=== PATIENT | male | born 1945 | race Caucasian/White ===

== ENCOUNTER 2017-10-08 14:49 | Inpatient (IN) | payer MEDICARE ==
[~2017-10-08] VITALS: Ht 165.1 cm; Wt 77.3 kg
[~2017-10-08 14:49] MED LIST: BACTRIM DS TABL1 TAB PO; FLAGYL500 MG PO; GLUCOPHAGE500 MG PO; HYDROCODONE-APA1 TAB PO; LOTREL 10/20 CA1 CAP PO
[2017-10-08 16:41] VITALS: BP 170/72
[2017-10-08 17:20] LABS: HEMATOCRIT 30.8 % (42.0-54.0); MCH 29.4 pg (26.0-34.0); MCHC 32.5 g/dL (31.0-37.0); MCV 90.6 fL (80.0-100.0); MEAN PLATELET VOLUME 10.1 fL (7.4-10.4); RDW 14.7 % (11.5-14.5)
[2017-10-08 17:22] LABS: PLATELET COUNT 192 10x3/uL (130-400)
[2017-10-08 17:36] LABS: ALBUMIN 2.8 g/dL (3.4-5.0); BILIRUBIN - TOTAL 0.28 mg/dL (0.2-1.3); CALCIUM 7.9 mg/dL (8.5-10.1); CARBON DIOXIDE 24.2 mmol/L (21.0-32.0); CREATININE - SERUM 1.7 mg/dL (0.6-1.3); MAGNESIUM - SERUM 2.2 mg/dL (1.8-2.4); POTASSIUM - SERUM 5.2 mmol/L (3.5-5.1)
[2017-10-08 18:00] LABS: LYMPHOCYTES 20 % (15-50); MONOCYTES 3 % (2-11); NEUTROPHILS 75 % (40-80)
[2017-10-08 18:01] LABS: PLATELET ESTIMATE NORMAL
[2017-10-08 19:51] VITALS: BP 170/72; Ht 165.1 cm; Wt 77.3 kg
[2017-10-08 20:00] VITALS: BP 133/65
[2017-10-09 03:38] LABS: APPEARANCE CLEAR (CLEAR); BILIRUBIN NEGATIVE (NEGATIVE); COLOR YELLOW (YELLOW); GLUCOSE NEGATIVE (NEGATIVE); KETONE NEGATIVE (NEGATIVE); NITRITE NEGATIVE (NEGATIVE); PROTEIN 2+ mg/dL (NEGATIVE); SPECIFIC GRAVITY 1.015 (1.005-1.020); UROBILINOGEN NORMAL (NORMAL)
[2017-10-09 03:39] LABS: WHITE CELLS - URINE NSEEN /hpf (0-5)
[2017-10-09 04:00] VITALS: BP 161/69
[2017-10-09 05:48] LABS: BASOPHILS 0.3 % (0-2); EOSINOPHILS 0.5 % (0-7); HEMOGLOBIN 9.4 g/dL (13.5-17.5); LYMPHOCYTES 26.5 % (15-50); MCH 29.3 pg (26.0-34.0); MCHC 32.4 g/dL (31.0-37.0); MCV 90.3 fL (80.0-100.0); MEAN PLATELET VOLUME 9.5 fL (7.4-10.4); MONOCYTES 18.2 % (2-11); NEUTROPHILS 54.5 % (40-80); PLATELET COUNT 168 10x3/uL (130-400); RBC 3.21 10x6/uL (4.20-6.10); RDW 14.9 % (11.5-14.5); WBC 3.7 10x3/uL (4.8-10.8)
[2017-10-09 06:18] LABS: ALBUMIN 2.4 g/dL (3.4-5.0); ANION GAP 12.8 mmol/L (8-16); BILIRUBIN - TOTAL 0.3 mg/dL (0.2-1.3); CALCIUM 7.6 mg/dL (8.5-10.1); CARBON DIOXIDE 24.6 mmol/L (21.0-32.0); CREATININE - SERUM 1.5 mg/dL (0.6-1.3); POTASSIUM - SERUM 4.4 mmol/L (3.5-5.1); PROTEIN - SERUM 5.7 g/dL (6.4-8.2)
[2017-10-09 07:59] VITALS: BP 154/66
[2017-10-09 12:34] VITALS: BP 163/63
[2017-10-09 15:45] VITALS: BP 157/57
[2017-10-09 20:00] VITALS: BP 164/59
[2017-10-10] VITALS: BP 165/72
[2017-10-10 04:00] VITALS: BP 178/72
[2017-10-10 04:43] LABS: BASOPHILS 0.2 % (0-2); EOSINOPHILS 0.5 % (0-7); HEMATOCRIT 28.8 % (42.0-54.0); HEMOGLOBIN 9.3 g/dL (13.5-17.5); IMMATURE GRANULOCYTES 0.4 % (0-5); LYMPHOCYTES 18.2 % (15-50); MCH 29.2 pg (26.0-34.0); MCHC 32.3 g/dL (31.0-37.0); MCV 90.3 fL (80.0-100.0); MEAN PLATELET VOLUME 9.5 fL (7.4-10.4); MONOCYTES 13.3 % (2-11); NEUTROPHILS 67.4 % (40-80); PLATELET COUNT 158 10x3/uL (130-400); RBC 3.19 10x6/uL (4.20-6.10); RDW 14.7 % (11.5-14.5)
[2017-10-10 04:45] LABS: WBC 5.6 10x3/uL (4.8-10.8)
[2017-10-10 04:57] LABS: ALBUMIN 2.2 g/dL (3.4-5.0); BILIRUBIN - TOTAL 0.3 mg/dL (0.2-1.3); CALCIUM 7.5 mg/dL (8.5-10.1); CARBON DIOXIDE 24.3 mmol/L (21.0-32.0); POTASSIUM - SERUM 4.3 mmol/L (3.5-5.1); PROTEIN - SERUM 5.6 g/dL (6.4-8.2)
[2017-10-10 05:00] LABS: CREATININE - SERUM 1.1 mg/dL (0.6-1.3)
[2017-10-10 07:03] VITALS: BP 167/68
[2017-10-10 11:10] VITALS: BP 160/64
[2017-10-10 15:07] VITALS: BP 167/63
[2017-10-10 23:37] VITALS: BP 174/67
[2017-10-11 04:00] VITALS: BP 180/74
[2017-10-11 05:32] LABS: BASOPHILS 0.1 % (0-2); EOSINOPHILS 0.9 % (0-7); HEMATOCRIT 30.3 % (42.0-54.0); HEMOGLOBIN 9.6 g/dL (13.5-17.5); IMMATURE GRANULOCYTES 0.3 % (0-5); LYMPHOCYTES 14.1 % (15-50); MCH 28.7 pg (26.0-34.0); MCHC 31.7 g/dL (31.0-37.0); MCV 90.7 fL (80.0-100.0); MEAN PLATELET VOLUME 10.1 fL (7.4-10.4); MONOCYTES 12.8 % (2-11); NEUTROPHILS 71.8 % (40-80); PLATELET COUNT 186 10x3/uL (130-400); RBC 3.34 10x6/uL (4.20-6.10); RDW 14.8 % (11.5-14.5)
[2017-10-11 05:56] LABS: ALBUMIN 2.3 g/dL (3.4-5.0); ANION GAP 13.4 mmol/L (8-16); BILIRUBIN - TOTAL 0.3 mg/dL (0.2-1.3); CALCIUM 7.7 mg/dL (8.5-10.1); CREATININE - SERUM 1.1 mg/dL (0.6-1.3); POTASSIUM - SERUM 4.4 mmol/L (3.5-5.1); PROTEIN - SERUM 5.4 g/dL (6.4-8.2)
[2017-10-11 09:23] VITALS: BP 184/73
[2017-10-11 11:43] VITALS: BP 132/81
[2017-10-11] MEDS ORDERED: MUCINEX600 MG PO (11:49)
[2017-10-11] MEDS ORDERED: TESSALON PERLE100 MG PO (11:49)
[2017-10-11] MEDS ORDERED: VENTOLIN HFA18 GM INH (11:50)
[2017-10-11] MEDS ORDERED: ZITHROMAX TRI-500 MG PO (11:50)
[2017-10-11] MEDS ORDERED: OMNICEF300 MG PO (11:50)
[2017-10-11] MEDS ORDERED: TAMIFLU75 MG PO (11:50)
[2017-10-11 16:00] VITALS: BP 167/70
[2017-10-15 17:13] LABS: AEROBE ID Final report (())
== END 2017-10-11 16:13 | disposition home or self-care (01) | DRG 193 ==
LOC: D.SDCHOLD 14:49 → D.MS 14:49
PROVIDERS: Family Medicine
DX: J10.00 Influenza due to other identified influenza virus with unspecified type of pneumonia (principal); G93.41 Metabolic encephalopathy; N17.9 Acute kidney failure, unspecified; J90 Pleural effusion, not elsewhere classified; K21.9 Gastro-esophageal reflux disease without esophagitis; E78.5 Hyperlipidemia, unspecified; M10.9 Gout, unspecified; E11.22 Type 2 diabetes mellitus with diabetic chronic kidney disease; I12.9 Hypertensive chronic kidney disease with stage 1 through stage 4 chronic kidney disease, or unspecified chronic kidney disease; N18.9 Chronic kidney disease, unspecified; E11.65 Type 2 diabetes mellitus with hyperglycemia; E86.0 Dehydration; E87.5 Hyperkalemia

== ENCOUNTER 2019-03-24 08:25 | Inpatient (IN) | payer MEDICARE ==
[~2019-03-24] VITALS: Ht 165.1 cm; Wt 86.2 kg
[~2019-03-24 08:25] MED LIST changes: +CARDURA2 MG PO; +DOXAZOSIN MESYLATE; +FLOMAX0.4 MG PO; +LIPITOR10 MG PO; +LISINOPRIL10 MG PO; +MIRALAX17 GM PO; +MUCINEX600 MG PO; +NORVASC10 MG PO; +OCUVITE TABLET1 TA1 PO; +OMEPRAZOLE40 MG PO; +OMNICEF300 MG PO; +TAMIFLU75 MG PO; +TESSALON PERLE100 MG PO; +TOUJEO SOL300 UNIT/1 SQ; +VENTOLIN HFA18 GM INH; +XALATAN 0.0052.5 ML EACH EYE; +ZITHROMAX TRI-500 MG PO; +ZYLOPRIM300 MG PO
--- NOTE | 2019-03-24 08:25 | NUR ---
TRAUMA BAND [id number]
[2019-03-24] MEDS ORDERED: NOVOLIN 70/30 110 ML SC ×2 (08:31)
[2019-03-24] MEDS ORDERED: BAYER CHEWABLE81 MG PO (08:32)
--- NOTE | 2019-03-24 08:54 | NUR ---
PATIENT TO RADIOLOGY AT THIS TIME.
[2019-03-24 08:58] LABS: BASOPHILS 0.3 % (0-2); EOSINOPHILS 0.2 % (0-7); HEMATOCRIT 30.2 % (42.0-54.0); HEMOGLOBIN 10.1 g/dL (13.5-17.5); IMMATURE GRANULOCYTES 0.3 % (0-5); LYMPHOCYTES 7.5 % (15-50); MCH 30.1 pg (26.0-34.0); MCHC 33.4 g/dL (31.0-37.0); MCV 89.9 fL (80.0-100.0); MEAN PLATELET VOLUME 9.6 fL (7.4-10.4); MONOCYTES 6.9 % (2-11); NEUTROPHILS 84.8 % (40-80); PLATELET COUNT 269 10x3/uL (130-400); RBC 3.36 10x6/uL (4.20-6.10); RDW 15.1 % (11.5-14.5); WBC 12.6 10x3/uL (4.8-10.8)
[2019-03-24 09:14] LABS: APPEARANCE CLEAR (CLEAR); COLOR YELLOW (YELLOW); NITRITE NEGATIVE (NEGATIVE)
[2019-03-24 09:15] LABS: BACTERIA FEW /hpf (NONE SEEN); BILIRUBIN NEGATIVE (NEGATIVE); EPITHELIAL CELLS RARE /hpf (0-5); GLUCOSE 50 mg/dL (NEGATIVE); KETONE NEGATIVE (NEGATIVE); MUCUS <1+ /lpf (NONE SEEN); PROTEIN 3+ mg/dL (NEGATIVE); RED CELLS - URINE 0-5 /hpf (0-5); UROBILINOGEN NORMAL (NORMAL)
[2019-03-24 09:34] LABS: BILIRUBIN - TOTAL 0.52 mg/dL (0.2-1.3); CALCIUM 8.5 mg/dL (8.5-10.1); CARBON DIOXIDE 23.6 mmol/L (21.0-32.0); CREATININE - SERUM 1.9 mg/dL (0.6-1.3); POTASSIUM - SERUM 5.6 mmol/L (3.5-5.1); PROTEIN - SERUM 6.9 g/dL (6.4-8.2)
[2019-03-24 09:44] VITALS: BP 182/87
--- NOTE | 2019-03-24 11:00 | NUR ---
ATTEMPTED ORTHO STATIC VITAL SIGNS AT THIS TIME. WHEN ATTEMPTING TO STAND, PT UNABLE TO DO SO D/T WEAKNESS. PT HELPED BACK TO BED AND LEFT IN LYING POSITION. WILL CONT TO MONITOR FOR CHANGES.
[2019-03-24 11:01] VITALS: BP 160/75
--- NOTE | 2019-03-24 11:30 | NUR ---
STAPLE X 2 TO HEAD LACERATION PER DIANA MATHEW.
[2019-03-24 12:48] VITALS: BP 180/100; BMI 31.6
[2019-03-24 16:59] VITALS: BP 171/77
--- NOTE | 2019-03-24 18:18 | NUR ---
RN KOLBY CAME AND ADVISED ME THAT SHE RECEIVED A CALL FROM VIDEO GAME ENGINEER TO PLACE STAT ORDERS ON PT FOR C-COLLAR AND CONSULT FOR PACE, CALLED ER AND HAND ER NURSE BRING HARD Da BORGES AND ASSISTED ALAN WITH PLACING COLLAR ON PT,. SPOKE TO SPOUSE AND ADVISED HER THESE WERE 'S ORDERS AND WE ARE TAKING PRECAUTIONARY MEASURES. CONTINUE WITH PLAN OF CARE
--- NOTE | 2019-03-24 19:45 | NUR ---
PT LYING IN BED RESTING, ALERT AND ORIENTED. C-COLLAR IN PLACE. IV LEFT AC INFUSING MVI @ 125. TELE IN PLACE, 85 SR. LEFT ANKLE BRUISING. AT BEDSIDE. DENIES PAIN. LACERATION TO BACK OF HEAD X2 RAMON. FALL PRECAUTIONS IN PLACE, BED ALARM ON. CL IN REACH, WILL CTM
--- NOTE | 2019-03-24 21:15 | NUR ---
FSBS 122, NO COVERAGE PER SS. DENIES NEEDS OR PAIN. WILL CTM
[2019-03-24 21:44] VITALS: BP 126/60
[2019-03-25 00:56] VITALS: BP 171/52
--- NOTE | 2019-03-25 01:30 | NUR ---
PT UNCOMFORTABLE LYING STILL ON BACK FOR SO LONG. ASSISTED PT X4 LOG ROLL TO LEFT SIDE WITH PILLOWS DOWN RIGHT SIDE TO KEEP PT STRAIGHT. C-COLLAR IN PLACE. DENIES PAIN. WILL CTM
[2019-03-25 05:00] VITALS: BP 154/62
[2019-03-25 05:58] LABS: BASOPHILS 0.2 % (0-2); EOSINOPHILS 0.2 % (0-7); HEMATOCRIT 27.1 % (42.0-54.0); HEMOGLOBIN 9.2 g/dL (13.5-17.5); IMMATURE GRANULOCYTES 0.3 % (0-5); LYMPHOCYTES 11.7 % (15-50); MCHC 33.9 g/dL (31.0-37.0); MCV 91.2 fL (80.0-100.0); MONOCYTES 12.8 % (2-11); NEUTROPHILS 74.8 % (40-80); PLATELET COUNT 229 10x3/uL (130-400); RBC 2.97 10x6/uL (4.20-6.10); RDW 15.4 % (11.5-14.5); WBC 13.2 10x3/uL (4.8-10.8)
[2019-03-25 06:29] LABS: ALBUMIN 2.3 g/dL (3.4-5.0); BILIRUBIN - TOTAL 0.46 mg/dL (0.2-1.3); CALCIUM 8.2 mg/dL (8.5-10.1); CREATININE - SERUM 1.7 mg/dL (0.6-1.3); PROTEIN - SERUM 5.7 g/dL (6.4-8.2)
[2019-03-25 06:31] LABS: ANION GAP 14.6 mmol/L (8-16); POTASSIUM - SERUM 4.6 mmol/L (3.5-5.1)
--- NOTE | 2019-03-25 09:00 | NUR ---
ALERT AND ORIENTED X4 WITH LIMITED ABILITY TO SPEAK WELSH WITH FAMILY PRESENT TO ASSIST. C-COLLAR INTACT AND DENIES ANY PAIN OR DISCOMFORT.S/L TO RT. A/C WITH TELEMETRY INTACT. FIBERGLASS SPLINT APPLIED TO LLE PER TELEVISION MAINTENANCE WORKER. ENCOURAGED TO USE CALL LIGHT FOR ASSIST.
[2019-03-25 09:22] VITALS: BP 166/87
[2019-03-25 09:29] VITALS: Ht 165.1 cm; Wt 86.2 kg
[2019-03-25 12:48] VITALS: BP 145/61
[2019-03-25 17:22] VITALS: BP 103/61
--- NOTE | 2019-03-25 19:37 | NUR ---
LYING IN BED WITH EYES OPEN AND TELEVISION ON, FAMILY AT BEDSIDE, IV TO RIGHT WRIST PATENT WITH MVI INFUSING PER ORDERS. ABLE TO VOICE ALL NEEDS. WILL NOTE ANY CHANGE.
[2019-03-25 20:00] VITALS: BP 161/62
--- NOTE | 2019-03-25 23:13 | NUR ---
REQUESTING TO TAKE COLLAR OFF, STATES HE HAS WENT TWO NIGHTS WITH NO REST DUE TO DISCOMFORT LEVEL OF COLLAR, NURSE ATTEMPTED TO EDUCATE PATIENT ON IMPORTANCE, HE STATES, HE DOESN'T WANT IT ON, CHAIN OF COMMAND BEING FOLLOWED.
[2019-03-26] VITALS: BP 152/61
--- NOTE | 2019-03-26 02:44 | NUR ---
COMPLAINS OF NOT BEING ABLE TO SLEEP WITH COLLAR ON, THIS NURSE EXPLAINED THE RISK OF INJURY TO SELF IF COLLAR DONNED, VERBALIZED UNDERSTANDING AND STATED HE WANTS TO SLEEP AND WILL BE FINE, WILL ATTEMPT TO REPLACE COLLAR AFTER HS.
--- NOTE | 2019-03-26 03:36 | NUR ---
I have reviewed this patient and I concur with the Shift Assessment completed by the Licensed Practical Nurse today this shift.
[2019-03-26 04:00] VITALS: BP 160/63
--- NOTE | 2019-03-26 06:41 | NUR ---
AGREED TO PUT ON COLLAR FOR START OF THIS SHIFT, STATED HE JUST DIDN'T WANT IT AT NIGHT SO HE CAN GET QUALITY HS. wILL NOTE ANY CHANGE.
[2019-03-26 06:55] LABS: BASOPHILS 0.3 % (0-2); EOSINOPHILS 3.3 % (0-7); HEMATOCRIT 26.4 % (42.0-54.0); HEMOGLOBIN 8.7 g/dL (13.5-17.5); IMMATURE GRANULOCYTES 0.2 % (0-5); LYMPHOCYTES 11.6 % (15-50); MCH 29.9 pg (26.0-34.0); MCV 90.7 fL (80.0-100.0); MEAN PLATELET VOLUME 10.4 fL (7.4-10.4); MONOCYTES 12.4 % (2-11); NEUTROPHILS 72.2 % (40-80); PLATELET COUNT 241 10x3/uL (130-400); RBC 2.91 10x6/uL (4.20-6.10); WBC 10.9 10x3/uL (4.8-10.8)
[2019-03-26 07:26] LABS: ALBUMIN 2.1 g/dL (3.4-5.0); ANION GAP 13.1 mmol/L (8-16); BILIRUBIN - TOTAL 0.34 mg/dL (0.2-1.3); CALCIUM 7.9 mg/dL (8.5-10.1); CARBON DIOXIDE 21.3 mmol/L (21.0-32.0); CREATININE - SERUM 1.8 mg/dL (0.6-1.3); POTASSIUM - SERUM 4.4 mmol/L (3.5-5.1); PROTEIN - SERUM 5.8 g/dL (6.4-8.2)
[2019-03-26 08:58] VITALS: BP 177/76
--- NOTE | 2019-03-26 09:00 | NUR ---
ALERT AND ORIENTED WITH CERVICAL COLLAR INTACT. SPLINT NOTED TO LLE WITH CAPILLARY REFILL <3 SEC. TYLENOL GIVEN FOR GENERALIZED DISCOMFORT AND EFFECTIVE. LUNGS CTA AND HRRR. FAMILY PRESENT AND ENCOURAGED TO USE CALL LIGHT FOR ASSIST.
[2019-03-26 12:32] VITALS: BP 163/61
[2019-03-26 17:09] VITALS: BP 140/54
[2019-03-26 20:00] VITALS: BP 166/69
[2019-03-27] VITALS: BP 132/69
[2019-03-27 04:00] VITALS: BP 157/86
[2019-03-27 08:11] LABS: BASOPHILS 0.5 % (0-2); HEMATOCRIT 28.2 % (42.0-54.0); HEMOGLOBIN 9.4 g/dL (13.5-17.5); IMMATURE GRANULOCYTES 0.2 % (0-5); LYMPHOCYTES 10.4 % (15-50); MCH 29.9 pg (26.0-34.0); MCHC 33.3 g/dL (31.0-37.0); MCV 89.8 fL (80.0-100.0); MEAN PLATELET VOLUME 10.3 fL (7.4-10.4); MONOCYTES 9.2 % (2-11); NEUTROPHILS 74.7 % (40-80); PLATELET COUNT 242 10x3/uL (130-400); RBC 3.14 10x6/uL (4.20-6.10); RDW 14.8 % (11.5-14.5); WBC 9.1 10x3/uL (4.8-10.8)
[2019-03-27 08:33] LABS: ANION GAP 13.2 mmol/L (8-16); BILIRUBIN - TOTAL 0.39 mg/dL (0.2-1.3); CARBON DIOXIDE 22.2 mmol/L (21.0-32.0); CREATININE - SERUM 1.5 mg/dL (0.6-1.3); POTASSIUM - SERUM 4.4 mmol/L (3.5-5.1); PROTEIN - SERUM 5.8 g/dL (6.4-8.2)
--- NOTE | 2019-03-27 09:00 | NUR ---
ALERT AND ORIENTED X4 WITH C-COLLAR INTACT TO NECK WITH SPLINT TO LLE. PT NPO AFTER MIDNIGHT FOR REAIR OF RLE. TLENOL GIVEN FOR PAIN AND EFFECTIVE. TELEMETRY INTACT. S/L TO LT. HAND INTACT. ENCOURAGED TO USE CALL LIGHT FOR ASSIST. AND DISCUSSED RISK FOR REMOVING SPLINTS.
[2019-03-27 09:15] VITALS: BP 174/69
[2019-03-27 13:10] VITALS: BP 158/59
[2019-03-27 16:22] VITALS: BP 144/53
[2019-03-27 20:00] VITALS: BP 165/67
[2019-03-28] VITALS (12 sets, daily range): BP systolic 126–172; BP diastolic 55–74
[2019-03-28 04:54] LABS: BASOPHILS 0.2 % (0-2); EOSINOPHILS 4.8 % (0-7); HEMOGLOBIN 8.7 g/dL (13.5-17.5); IMMATURE GRANULOCYTES 0.3 % (0-5); LYMPHOCYTES 12.1 % (15-50); MCH 29.8 pg (26.0-34.0); MCHC 33.5 g/dL (31.0-37.0); MEAN PLATELET VOLUME 9.8 fL (7.4-10.4); MONOCYTES 11.5 % (2-11); NEUTROPHILS 71.1 % (40-80); PLATELET COUNT 252 10x3/uL (130-400); RBC 2.92 10x6/uL (4.20-6.10); RDW 14.6 % (11.5-14.5); WBC 8.8 10x3/uL (4.8-10.8)
[2019-03-28 05:12] LABS: ANION GAP 12.5 mmol/L (8-16); BILIRUBIN - TOTAL 0.3 mg/dL (0.2-1.3); CALCIUM 7.9 mg/dL (8.5-10.1); CARBON DIOXIDE 22.9 mmol/L (21.0-32.0); CREATININE - SERUM 1.5 mg/dL (0.6-1.3); POTASSIUM - SERUM 4.4 mmol/L (3.5-5.1); PROTEIN - SERUM 5.7 g/dL (6.4-8.2)
--- NOTE | 2019-03-28 07:00 | NUR ---
PATIENT RESTING IN BED. NPO FOR PROCEDURE LATER TODAY TO FRACTURED LEFT ANKLE. PATIENT DENIES ANY NEEDS AT THIS TIME. CL IN REACH
--- NOTE | 2019-03-28 13:00 | NUR ---
NUTRITION F/U PT CURRENTLY NPO FOR PROCEDURE. WILL MONITOR DIET ADVANCEMENT, PO INTAKE. RD FOLLOWING
--- NOTE | 2019-03-28 13:16 | NUR ---
PATIENT TAKEN TO OR FOR PROCEDURE
--- NOTE | 2019-03-28 16:36 | NUR ---
PATIENT RECIEVED FROM RECOVERY ROOM WITH SOFT CAST INTACT. PATIENT REPORTS PAIN WITH NORCO GIVEN. PULSES PRESENT WNL. CL IN REACH
--- NOTE | 2019-03-28 21:00 | NUR ---
FSBS 263 10 UNITS OF INSULIN GIVEN PER SS.
[2019-03-29 04:00] VITALS: BP 174/71
--- NOTE | 2019-03-29 04:21 | NUR ---
PT RESTING IN BED. EYES CLOSED. NO SIGNS OF DISTRESS. BREATHING EVEN AND UNLABORED. IV SITE LT WRIST DRESSING CLEAN DRY AND INTACT. NO SIGNS OF INFECTION. TELE MONITOR ON 72 SINUS. BOWEL SOUNDS ACTIVE. RT ANKLE DRESSING CLEAN DRY AND INTACT. WILL CONTINUE PLAN OF CARE. CALL LIGHT IN REACH. BED LOWERED AND LOCKED. AT BEDSIDE.
[2019-03-29 05:58] LABS: BASOPHILS 0.4 % (0-2); HEMATOCRIT 26.7 % (42.0-54.0); IMMATURE GRANULOCYTES 0.5 % (0-5); LYMPHOCYTES 9.7 % (15-50); MCH 30.6 pg (26.0-34.0); MCHC 33.7 g/dL (31.0-37.0); MCV 90.8 fL (80.0-100.0); MEAN PLATELET VOLUME 9.9 fL (7.4-10.4); MONOCYTES 10.5 % (2-11); NEUTROPHILS 75.9 % (40-80); PLATELET COUNT 283 10x3/uL (130-400); RBC 2.94 10x6/uL (4.20-6.10); RDW 14.6 % (11.5-14.5)
--- NOTE | 2019-03-29 06:20 | NUR ---
PT IV INFULTRATED. NEW IV SITE LT UPPER INNER ARM 22G. PT TOLERATED WELL. ATTEMPTS X3. WULL RESTART IV FLUIDS.
--- NOTE | 2019-03-29 06:21 | NUR ---
FSBS 111 NO INSULIN NEEDED AT THIS TIME. PER SS.
[2019-03-29 06:40] LABS: WBC 11.4 10x3/uL (4.8-10.8)
[2019-03-29 07:01] LABS: ALBUMIN 2.1 g/dL (3.4-5.0); BILIRUBIN - TOTAL 0.31 mg/dL (0.2-1.3); CALCIUM 7.7 mg/dL (8.5-10.1); CARBON DIOXIDE 23.1 mmol/L (21.0-32.0); CREATININE - SERUM 1.6 mg/dL (0.6-1.3); PROTEIN - SERUM 5.4 g/dL (6.4-8.2)
--- NOTE | 2019-03-29 07:25 | NUR ---
PT RESTING IN BED WITH SPOUSE AT BEDSIDE. NO ACUTE DISTRESS NOTED AT THIS TIME. DENIES PAIN AT THIS TIME. IV TO RIGHT UPPER ARM WITH MULTI VITAMIN @ 125ML/HR INFUSING VIA PUMP. SITE WITHOUT REDNESS OR EDEMA. DRESSING C/D/I TO RIGHT LOWER EXTREMITY. EXREMITY WARM TO TOUCH, ABLE TO MOVE TOES, POSITIVE FOR CAP REFILL. DENIES FURTHER NEEDS AT THIS TIME. CL WITHIN REACH. ENCOURAGED TO CALL WITH NEEDS. CONTINUE POC
[2019-03-29 07:52] LABS: POTASSIUM - SERUM 5.1 mmol/L (3.5-5.1)
[2019-03-29 08:36] VITALS: BP 159/63; BP 183/98
--- NOTE | 2019-03-29 09:45 | NUR ---
PT AT PATIENT BEDSIDE TO ASSIST TO EVALUATE AND ASSIST TO BEDSIDE CHAIR. PT JORDY WELL. CL WITHIN REACH.
--- NOTE | 2019-03-29 11:35 | NUR ---
PT RESTING IN BED WITH SPOUSE AT BEDSIDE. NO ACUTE DISTRESS NOTED AT THIS TIME. DENIES PAIN OR FURTHER NEEDS AT THIS TIME. CL WITHIN REACH. ENCOURAGED TO CALL WITH NEEDS.
--- NOTE | 2019-03-29 12:40 | MORECARE ---
CASE MANAGEMENT DISCHARGE SUMMARY PATIENT: LAURA LEVY UNIT: [id number] ADM DATE: 03/24/19 AGE: 73 : 45 SEX: M ROOM/BED: D.2210 AUTHOR: CADE HYDE PHYSICIAN: REFERRING PHYSICIAN: VERONICA ROCA MD DATE OF SERVICE: 03/29/19 Discharge Plan Patient Name: LAURA LEVY Facility: [facility]:[place] : 1945 Planned Disposition: Home with Home Health Anticipated Discharge Date: Discharge Date: Expected LOS: Initial Reviewer: [email or web address] Initial Review Date: 03/24/2019 Generated: 03/29/19 1:40 pm DCPIA - Discharge Planning Initial Assessment Updated by [email or web address]: Karmen Downs on 03/29/19 12:35 pm * Is the patient Alert and Oriented? Yes * How many steps to enter\exit or inside your home? * PCP NICO * Pharmacy [facility] * Preadmission Environment Home with Family * ADLs Independent * Equipment Bedside Commode Cane Rolling Walker Shower Chair * List name and contact numbers for known caregivers / representatives who currently or will assist patient after discharge: CARA (DAUGHTER) [phone] KATIANA LEVY () [phone] * Verbal permission to speak to the caregivers and representatives has been obtained from the patient. Yes * Community resources currently utilized None * Additional services required to return to the preadmission environment? Yes * Can the patient safely return to the preadmission environment? Yes * Has this patient been hospitalized within the prior 30 days at any hospital? No External Providers External Provider: [facility] Next Contact Date: Service Request Date: Service Type: Resolution: Reviewer: Comments: Patient Name: LAURA LEVY Page [id number] at 1240 All edits/amendments must be made on the electronic document DICTATION DATE: 03/29/19 1239 PIPE FITTER: YULISA 03/29/19 1239 RPT#: [id number] DC DATE: STATUS: ADM IN [facility] [address] [place] [address] END OF REPORT
--- NOTE | 2019-03-29 12:48 | MORECARE ---
CASE MANAGEMENT DISCHARGE SUMMARY PATIENT: LAURA LEVY UNIT: [id number] ADM DATE: 03/24/19 AGE: 73 : 45 SEX: M ROOM/BED: D.2210 AUTHOR: CADE HYDE PHYSICIAN: REFERRING PHYSICIAN: VERONICA ROCA MD DATE OF SERVICE: 03/29/19 Discharge Plan Patient Name: LAURA LEVY Facility: [facility]:[place] : 1945 Planned Disposition: Home with Home Health Anticipated Discharge Date: Discharge Date: Expected LOS: Initial Reviewer: [email or web address] Initial Review Date: 03/24/2019 Generated: 03/29/19 1:48 pm Comments DCP- Discharge Planning Updated by [email or web address]: Karmen Downs on 03/29/19 11:[address] Patient Name: LAURA LEVY Admission Status: ER Accout number: [id number] Admission Date: 03-24-2019 : 1945 Admission Diagnosis:DISPLACED BIMALLEOLAR FRACTURE OF LEFT LOWER LEG, INIT Attending: VERONICA ABREU Current LOS: 5 Anticipated DC Date: Planned Disposition: Home with Home Health Primary Insurance: [facility] MEDICARE SOLUTIONS Discharge Planning Comments: CM met with patient and to complete initial dc planning assessment. CM educated patient on the CM role and verbal consent given by patient to complete assessment. Patient lives at home with his , but is currently moving to [place] to live with his daughter. At discharge patient plans to move to [place] and feels this is a safe discharge. CM discussed availability of home health, rehab services, and medical equipment. He does NOT want rehab or skilled he wants home health to come to his daughters home. Her address is [address] [place] [id number]. He has a walker, shower chair, BSC, cane and I have ordered a wheelchair from [employer], I spoke with hernando. I will call his daughter to see if she had found any information about home [employer] companies in [place], she was suppose to be looking into this. IMM served and explained and MARGARETTE fro DME and HH signed. CM will continue to follow and will assist as needed with dc plans/needs. Dental Detail Representative: Karmen Downs DCPIA - Discharge Planning Initial Assessment Updated by [email or web address]: Karmen Downs on 03/29/19 12:35 pm * Is the patient Alert and Oriented? Yes * How many steps to enter\exit or inside your home? * PCP NICO * [facility] * Preadmission Environment Home with Family * ADLs Independent * Equipment Bedside Commode Cane Rolling Walker Shower Chair * List name and contact numbers for known caregivers / representatives who currently or will assist patient after discharge: CARA (DAUGHTER) [phone] KATIANA LEVY () [phone] * Verbal permission to speak to the caregivers and representatives has been obtained from the patient. Yes * Community resources currently utilized None * Additional services required to return to the preadmission environment? Yes * Can the patient safely return to the preadmission environment? Yes * Has this patient been hospitalized within the prior 30 days at any hospital? No Last DP export: 03/29/19 11:40 a Patient Name: LAURA LEVY Page [phone] at 1248 All edits/amendments must be made on the electronic document DICTATION DATE: 03/29/19 1248 CLAY MINE CUTTING MACHINE OPERATOR: YULISA 03/29/19 1248 RPT#: [id number] DC DATE: STATUS: ADM IN [facility] [address] [place] [address] END OF REPORT
[2019-03-29 12:56] VITALS: BP 169/71
--- NOTE | 2019-03-29 13:43 | MORECARE ---
CASE MANAGEMENT DISCHARGE SUMMARY PATIENT: LAURA LEVY UNIT: [id number] ADM DATE: 03/24/19 AGE: 73 : 45 SEX: M ROOM/BED: D.2210 AUTHOR: MARY ELLEN,DOC PHYSICIAN: REFERRING PHYSICIAN: VERONICA ROCA MD DATE OF SERVICE: 03/29/19 Discharge Plan Patient Name: LAURA LEVY Facility: [facility]:[place] : 1945 Planned Disposition: Home with Home Health Anticipated Discharge Date: Discharge Date: Expected LOS: Initial Reviewer: [email or web address] Initial Review Date: 03/24/2019 Generated: 03/29/19 2:43 pm Comments DCP- Discharge Planning Updated by [email or web address]: Karmen Downs on 03/29/19 12:[address] RECEIVED A CALL FROM HERNANDO WITH [facility] THEY ARE OUT OF NETWORK FOR THIS PATIENT, [facility] IS IN NETWORK SO I SENT THE ORDER AND REFERRAL TO [facility]. TRENT TO FOLLOW AND ASSIST WITH DC PLANNING DCP- Discharge Planning Updated by [id number]: Karmen Downs on 03/29/19 11:[address] Patient Name: LAURA LEVY Admission Status: ER Accout number: [id number] Admission Date: 03-24-2019 : 1945 Admission Diagnosis:DISPLACED BIMALLEOLAR FRACTURE OF LEFT LOWER LEG, INIT Attending: VERONICA ABREU Current LOS: 5 Anticipated DC Date: Planned Disposition: Home with Home Health Primary Insurance: [facility] MEDICARE SOLUTIONS Discharge Planning Comments: CM met with patient and to complete initial dc planning assessment. CM educated patient on the CM role and verbal consent given by patient to complete assessment. Patient lives at home with his , but is currently moving to [place] to live with his daughter. At discharge patient plans to move to [place] and feels this is a safe discharge. CM discussed availability of home health, rehab services, and medical equipment. He does NOT want rehab or skilled he wants home health to come to his daughters home. Her address is [address] [place] [address]. He has a walker, shower chair, BSC, cane and I have ordered a wheelchair from [facility], I spoke with hernando. I will call his daughter to see if she had found any information about home [facility] companies in [place], she was suppose to be looking into this. IMM served and explained and MARGARETTE fro [facility] and HH signed. CM will continue to follow and will assist as needed with dc plans/needs. Culvert Installer: Karmen Downs DCPIA - Discharge Planning Initial Assessment Updated by [email or web address]: Karmen Downs on 03/29/19 12:35 pm * Is the patient Alert and Oriented? Yes * How many steps to enter\exit or inside your home? * PCP [facility] * [facility] * Preadmission Environment Home with Family * ADLs Independent * Equipment Bedside Commode Cane Rolling Walker Shower Chair * List name and contact numbers for known caregivers / representatives who currently or will assist patient after discharge: CARA (DAUGHTER) [phone] KATIANA LEVY () [phone] * Verbal permission to speak to the caregivers and representatives has been obtained from the patient. Yes * Community resources currently utilized None * Additional services required to return to the preadmission environment? Yes * Can the patient safely return to the preadmission environment? Yes * Has this patient been hospitalized within the prior 30 days at any hospital? No External Providers External Provider: [facility] Next Contact Date: Service Request Date: Service Type: Resolution: Reviewer: Comments: Coverage Notice Reviewer: [email or web address] Elton Downs Notice Issued Date-Time: 03/29/2019 12:00 Notice Type: IM Discharge Notice Notice Delivered To: Patient Relationship to Patient: Spouse Patient Care Nursing Assistant Name: Delivery Method: HAND - Hand Delivered Annabelle Days: Prior Verbal Notification: Recipient Understood Notice: Yes Recipient Signature: Yes Med Rec Note Co-signed by Attending: Coverage Notice Comment: patient could not sign, did Reviewer: [email or web address] Elton Downs Notice Issued Date-Time: 03/29/2019 12:00 Notice Type: Patient Choice Letter Notice Delivered To: Patient Relationship to Patient: Patient Care Nursing Assistant Name: Delivery Method: - Annabelle Days: Prior Verbal Notification: Recipient Understood Notice: Recipient Signature: Med Rec Note Co-signed by Attending: Coverage Notice Comment: Last DP export: 03/29/19 11:48 a Patient Name: LAURA LEVY Page [phone] at 1343 All edits/amendments must be made on the electronic document DICTATION DATE: 03/29/191341 CONCEPTOR: YULISA 03/29/191341 RPT#: [id number] DC DATE: STATUS: ADM IN [facility] [address] [place] [address] END OF REPORT
--- NOTE | 2019-03-29 13:47 | NUR ---
PT RESTING QUIETLY IN BED WITH EYES CLOSED. NO ACUTE DISTRESS NOTED AT THIS TIME. CL WITHIN REACH. WILL CONTINUE TO MONITOR.
--- NOTE | 2019-03-29 14:07 | MORECARE ---
CASE MANAGEMENT DISCHARGE SUMMARY PATIENT: LAURA LEVY UNIT: [id number] ADM DATE: 03/24/19 AGE: 73 : 45 SEX: M ROOM/BED: D.2210 AUTHOR: CADE HYDE PHYSICIAN: REFERRING PHYSICIAN: VERONICA ROCA MD DATE OF SERVICE: 03/29/19 Discharge Plan Patient Name: LAURA LEVY Facility: [facility]:[place] : 1945 Planned Disposition: Home with Home Health Anticipated Discharge Date: Discharge Date: Expected LOS: Initial Reviewer: [email or web address] Initial Review Date: 03/24/2019 Generated: 03/29/19 3:06 pm Comments DCP- Discharge Planning Updated by [email or web address]: Karmen Downs on 03/29/19 1:[address] RECEIVED A CALL FROM PATIENT'S DAUGHTER AND THEY WANT HIM TO USE [facility], I CALLED THEM AND SPOKE WITH ISMAEL, SHE STATED THAT THEY ARE NOT IN NETWORK WITH [facility] IN [facility], I CALLED THE DAUGHTERS BACK AND THEY WERE GOING TO GET BACK WITH ME AND LET ME KNOW THEIR NEXT CHOICE. CM TO FOLLOW AND ASSIST WITH DC PLANNING DCP- Discharge Planning Updated by [email or web address]: Karmen Downs on 03/29/19 12:[address] RECEIVED A CALL FROM HERNANDO WITH [facility] THEY ARE OUT OF NETWORK FOR THIS PATIENT, [facility] IS IN NETWORK SO I SENT THE ORDER AND REFERRAL TO [facility]. CM TO FOLLOW AND ASSIST WITH DC PLANNING DCP- Discharge Planning Updated by [email or web address]: Karmen Downs on 03/29/19 11:[address] Patient Name: LAURA LEVY Admission Status: ER Accout number: [id number] Admission Date: 03-24-2019 : 1945 Admission Diagnosis:DISPLACED BIMALLEOLAR FRACTURE OF LEFT LOWER LEG, INIT Attending: VERONICA ABREU Current LOS: 5 Anticipated DC Date: Planned Disposition: Home with Home Health Primary Insurance: [facility] MEDICARE SOLUTIONS Discharge Planning Comments: CM met with patient and to complete initial dc planning assessment. CM educated patient on the CM role and verbal consent given by patient to complete assessment. Patient lives at home with his , but is currently moving to [place] to live with his daughter. At discharge patient plans to move to [place] and feels this is a safe discharge. CM discussed availability of home health, rehab services, and medical equipment. He does NOT want rehab or skilled he wants home health to come to his daughters home. Her address is [facility] [place] [address]. He has a walker, shower chair, BSC, cane and I have ordered a wheelchair from [employer], I spoke with hernando. I will call his daughter to see if she had found any information about home helath companies in [place], she was suppose to be looking into this. IMM served and explained and MARGARETTE kenney [place] and HH signed. CM will continue to follow and will assist as needed with dc plans/needs. Pst Specialist: Karmen Downs DCPIA - Discharge Planning Initial Assessment Updated by [email or web address]: Karmen Downs on 03/29/19 12:35 pm * Is the patient Alert and Oriented? Yes * How many steps to enter\exit or inside your home? * PCP NICO * [facility]acy [facility] * Preadmission Environment Home with Family * ADLs Independent * Equipment Bedside Commode Cane Rolling Walker Shower Chair * List name and contact numbers for known caregivers / representatives who currently or will assist patient after discharge: CARA (DAUGHTER) [phone] KATIANA LEVY () [phone] * Verbal permission to speak to the caregivers and representatives has been obtained from the patient. Yes * Community resources currently utilized None * Additional services required to return to the preadmission environment? Yes * Can the patient safely return to the preadmission environment? Yes * Has this patient been hospitalized within the prior 30 days at any hospital? No Coverage Notice Reviewer: [id number] Elton Downs Notice Issued Date-Time: 03/29/2019 12:00 Notice Type: IM Discharge Notice Notice Delivered To: Patient Relationship to Patient: Spouse Youth Accommodation Support Worker Name: Delivery Method: HAND - Hand Delivered Annabelle Days: Prior Verbal Notification: Recipient Understood Notice: Yes Recipient Signature: Yes Med Rec Note Co-signed by Attending: Coverage Notice Comment: patient could not sign, did Reviewer: [email or web address] Elton Downs Notice Issued Date-Time: 03/29/2019 12:00 Notice Type: Patient Choice Letter Notice Delivered To: Patient Relationship to Patient: Youth Accommodation Support Worker Name: Delivery Method: - Annabelle Days: Prior Verbal Notification: Recipient Understood Notice: Recipient Signature: Med Rec Note Co-signed by Attending: Coverage Notice Comment: Last DP export: 03/29/19 12:43 p Patient Name: LAURA LEVY Page [id number] at 1407 All edits/amendments must be made on the electronic document DICTATION DATE: 03/29/191405 GUIDANCE ADVISER: YULISA 03/29/19 1406 RPT#: [id number] DC DATE: STATUS: ADM IN [facility] [address] [place] [address] END OF REPORT
--- NOTE | 2019-03-29 14:52 | MORECARE ---
CASE MANAGEMENT DISCHARGE SUMMARY PATIENT: LAURA LEVY UNIT: [id number] ADM DATE: 03/24/19 AGE: 73 : 45 SEX: M ROOM/BED: D.2210 AUTHOR: MARY ELLEN,DOC PHYSICIAN: REFERRING PHYSICIAN: VERONICA ROCA MD DATE OF SERVICE: 03/29/19 Discharge Plan Patient Name: LAURA LEVY Facility: [facility]:[place] : 1945 Planned Disposition: Home with Home Health Anticipated Discharge Date: Discharge Date: Expected LOS: Initial Reviewer: [id number] Initial Review Date: 03/24/2019 Generated: 03/29/19 3:52 pm Comments DCP- Discharge Planning Updated by [id number]: Karmen Downs on 03/29/19 1:[address] CALLED [facility] ) AND SPOKE WITH HECTOR, SHE STATED THAT IS WOULD TAKE 7-14 DAYS TO GET AUTH, SHE SAID TO CALL [facility] ([phone])THEY WERE IN NETWORK. I CALLED THERE AND SPOKE WITH HENRIK, SHE STATED THAT HE WOULD NEED TO BE ESTABLISHED WITH A PRIMARY CARE THEN A REFERRAL COULD BE SENT, THAT OUR ORTHO MD ORDER WOULD NOT WORK. I CALL [facility] CM JOHNNY AND LEFT MESSAGE TO SEE IF SHE COULD ASSIST WITH ANY DC NEEDS. CM TO FOLLOW AND ASSIST WITH DC PLANNING DCP- Discharge Planning Updated by [id number]: Karmen Downs on 03/29/19 1:[address] RECEIVED A CALL FROM PATIENT'S DAUGHTER AND THEY WANT HIM TO USE [facility], I CALLED THEM AND SPOKE WITH ISMAEL, SHE STATED THAT THEY ARE NOT IN NETWORK WITH [facility] IN [place], I CALLED THE DAUGHTERS BACK AND THEY WERE GOING TO GET BACK WITH ME AND LET ME KNOW THEIR NEXT CHOICE. CM TO FOLLOW AND ASSIST WITH DC PLANNING DCP- Discharge Planning Updated by [email or web address]: Karmen Downs on 03/29/19 12:[address] RECEIVED A CALL FROM HERNANDO WITH [facility] THEY ARE OUT OF NETWORK FOR THIS PATIENT, [facility] IS IN NETWORK SO I SENT THE ORDER AND REFERRAL TO [facility]. CM TO FOLLOW AND ASSIST WITH DC PLANNING DCP- Discharge Planning Updated by [email or web address]: Karmen Navaken on 03/29/19 11:[address] Patient Name: LAURA LEVY Admission Status: ER Accout number: [id number] Admission Date: 03-24-2019 : 1945 Admission Diagnosis:DISPLACED BIMALLEOLAR FRACTURE OF LEFT LOWER LEG, INIT Attending: VERONICA ABREU Current LOS: 5 Anticipated DC Date: Planned Disposition: Home with Home Health Primary Insurance: [facility] MEDICARE SOLUTIONS Discharge Planning Comments: CM met with patient and to complete initial dc planning assessment. CM educated patient on the CM role and verbal consent given by patient to complete assessment. Patient lives at home with his , but is currently moving to [place] to live with his daughter. At discharge patient plans to move to [place] and feels this is a safe discharge. CM discussed availability of home health, rehab services, and medical equipment. He does NOT want rehab or skilled he wants home health to come to his daughters home. Her address is [address] [place] [address]. He has a walker, shower chair, BSC, cane and I have ordered a wheelchair from [employer], I spoke with hernando. I will call his daughter to see if she had found any information about home helath companies in [place], she was suppose to be looking into this. [facility] served and explained and MARGARETTE [facility] and HH signed. CM will continue to follow and will assist as needed with dc plans/needs. Mold Runner: Karmen Downs DCPIA - Discharge Planning Initial Assessment Updated by [email or web address]: Karmen Downs on 03/29/19 12:35 pm * Is the patient Alert and Oriented? Yes * How many steps to enter\exit or inside your home? * PCP [facility] * [facility] * Preadmission Environment Home with Family * ADLs Independent * Equipment Bedside Commode Cane Rolling Walker Shower Chair * List name and contact numbers for known caregivers / representatives who currently or will assist patient after discharge: CARA (DAUGHTER) [phone] KATIANA LEVY () [phone] * Verbal permission to speak to the caregivers and representatives has been obtained from the patient. Yes * Community resources currently utilized None * Additional services required to return to the preadmission environment? Yes * Can the patient safely return to the preadmission environment? Yes * Has this patient been hospitalized within the prior 30 days at any hospital? No Coverage Notice Reviewer: [id number] Elton Downs Notice Issued Date-Time: 03/29/2019 12:00 Notice Type: IM Discharge Notice Notice Delivered To: Patient Relationship to Patient: Spouse Saw Maker Name: Delivery Method: HAND - Hand Delivered Annabelle Days: Prior Verbal Notification: Recipient Understood Notice: Yes Recipient Signature: Yes Med Rec Note Co-signed by Attending: Coverage Notice Comment: patient could not sign, did Reviewer: [id number] Elton Downs Notice Issued Date-Time: 03/29/2019 12:00 Notice Type: Patient Choice Letter Notice Delivered To: Patient Relationship to Patient: Saw Maker Name: Delivery Method: - Annabelle Days: Prior Verbal Notification: Recipient Understood Notice: Recipient Signature: Med Rec Note Co-signed by Attending: Coverage Notice Comment: Last DP export: 03/29/19 1:07 p Patient Name: LAURA LEVY Page [id number] at 1452 All edits/amendments must be made on the electronic document DICTATION DATE: 03/29/19 145 CUTTER WET MACHINE: YULISA 03/29/19 145 RPT#: [id number] DC DATE: STATUS: ADM IN [facility] [address] [place] [address] END OF REPORT
--- NOTE | 2019-03-29 14:56 | NUR ---
OT NOTE: PT COMPLETED BED MOB WITH MAX A. PT COMPLETED SIT TO STAND WITH MAX A. PT COMPLETED HYGIENE TASKS WITH MOD A. PT STATED HE FELL TWICE ON SAME DAY AT HOME. CHARLES CAUTIONED PATIENT/ TO ADHERE TO PRECAUTIONS AND USE CALL LIGHT. THANK YOU, MELVIN BROCK
--- NOTE | 2019-03-29 15:32 | NUR ---
Rehab Note- Acute Inpatient Rehab prescreen order received. Per CM note, the patient plans to discharge home & go to [place]. Thank you for this referral! Leila De Souza RN Clinical Liaison, [facility]
[2019-03-29 17:36] VITALS: BP 159/72
--- NOTE | 2019-03-29 19:32 | NUR ---
RESTING IN BED WITH EYES CLOSED, AT BEDSIDE, AROUSED EASILY TO VOICE COMPLAINED OF PAIN LEVEL OF 5/10, WILL GIVE MEDICATION PER ORDERS. WILL NOTE ANY CHANGE.
--- NOTE | 2019-03-29 19:40 | NUR ---
PAIN MEDICATION GIVEN PER ORDERS. WILL NOTE ANY CHANGE.
[2019-03-29 20:00] VITALS: BP 162/64
--- NOTE | 2019-03-29 21:25 | NUR ---
APPEARS TO BE SENSITIVE TO NORCO, PAIN IS ELIMINATED, BUT HAVING SLIGHT DELUSIONS ABOUT THIS BEING HIS NEW HOUSE AND ASKING WHERE HIS ROOMS ARE WITHIN THIS HOUSE, PATIENT IS JOYFUL AND LAUGHING AND SHOWING NO S/S OF ANY PAIN. WILL NOTE FURTHER CHANGE. IS STILL AT BEDSIDE.
--- NOTE | 2019-03-29 22:25 | NUR ---
temperature of 100.5 noted, treated with tylenol. will continue to monitor and note any change.
--- NOTE | 2019-03-30 02:48 | NUR ---
I have reviewed this patient and I concur with the Shift Assessment completed by the Licensed Practical Nurse today this shift.
[2019-03-30 04:00] VITALS: BP 164/66
[2019-03-30 05:16] LABS: BASOPHILS 0.3 % (0-2); HEMATOCRIT 24.8 % (42.0-54.0); HEMOGLOBIN 8.2 g/dL (13.5-17.5); IMMATURE GRANULOCYTES 0.5 % (0-5); LYMPHOCYTES 12.5 % (15-50); MCH 29.9 pg (26.0-34.0); MCHC 33.1 g/dL (31.0-37.0); MCV 90.5 fL (80.0-100.0); MEAN PLATELET VOLUME 9.7 fL (7.4-10.4); MONOCYTES 13.7 % (2-11); PLATELET COUNT 276 10x3/uL (130-400); RBC 2.74 10x6/uL (4.20-6.10); RDW 14.6 % (11.5-14.5); WBC 9.8 10x3/uL (4.8-10.8)
[2019-03-30 05:29] LABS: ANION GAP 11.1 mmol/L (8-16); CARBON DIOXIDE 24.2 mmol/L (21.0-32.0); CREATININE - SERUM 1.7 mg/dL (0.6-1.3)
[2019-03-30 05:32] LABS: POTASSIUM - SERUM 4.3 mmol/L (3.5-5.1)
--- NOTE | 2019-03-30 07:31 | NUR ---
PT RESTING IN BED. AT BEDSIDE. NO S/S OF ACUTE DISTRESS. CL IN PLACE.
[2019-03-30 08:55] VITALS: BP 109/61
--- NOTE | 2019-03-30 11:30 | MORECARE ---
CASE MANAGEMENT DISCHARGE SUMMARY PATIENT: LAURA LEVY UNIT: [id number] ADM DATE: 03/24/19 AGE: 73 : 45 SEX: M ROOM/BED: D.2210 AUTHOR: MARY ELLEN,DOC PHYSICIAN: REFERRING PHYSICIAN: VERONICA ROCA MD DATE OF SERVICE: 03/30/19 Discharge Plan Patient Name: LAURA LEVY Facility: [facility]:[place] : 1945 Planned Disposition: Home with Home Health Anticipated Discharge Date: Discharge Date: Expected LOS: Initial Reviewer: [id number] Initial Review Date: 03/24/2019 Generated: 03/30/19 12:30 pm Comments DCP- Discharge Planning Updated by [email or web address]: Karmen Downs on 03/30/19 10:[address] I have reached out to Johnny with [facility] to help facilitate getting the patient to [place]. She was going to talk to her facility manager histology and get back with me. The wheelchair was delivered to hospital, then taken away because the [place] going [place] and this [place] a rental. CM to follow and assist DCP- Discharge Planning Updated by [id number]: Karmen Downs on 03/29/19 1:[address] CALLED [facility] ( [phone]) AND SPOKE WITH HECTOR, SHE STATED THAT IS WOULD TAKE 7-14 DAYS TO GET AUTH, SHE SAID TO CALL [facility] ([phone])THEY WERE IN NETWORK. I CALLED THERE AND SPOKE WITH HENRIK, SHE STATED THAT HE WOULD NEED TO BE ESTABLISHED WITH A PRIMARY CARE THEN A REFERRAL COULD BE SENT, THAT OUR ORTHO MD ORDER WOULD NOT WORK. I CALL [facility] CM JOHNNY AND LEFT MESSAGE TO SEE IF SHE COULD ASSIST WITH ANY DC NEEDS. CM TO FOLLOW AND ASSIST WITH DC PLANNING DCP- Discharge Planning Updated by [id number]: Karmen oDwns on 03/29/19 1:[address] RECEIVED A CALL FROM PATIENT'S DAUGHTER AND THEY WANT HIM TO USE [facility], I CALLED THEM AND SPOKE WITH ISMAEL, SHE STATED THAT THEY ARE NOT IN NETWORK WITH [facility] [place] [facility], I CALLED THE DAUGHTERS BACK AND THEY WERE GOING TO GET BACK WITH ME AND LET ME KNOW THEIR NEXT CHOICE. CM TO FOLLOW AND ASSIST WITH DC PLANNING DCP- Discharge Planning Updated by [email or web address]: Karmen Downs on 03/29/19 12:[address] RECEIVED A CALL FROM HERNANDO WITH [facility] THEY ARE OUT OF NETWORK FOR THIS PATIENT, [facility] IS IN NETWORK SO I SENT THE ORDER AND REFERRAL TO [facility]. CM TO FOLLOW AND ASSIST WITH DC PLANNING DCP- Discharge Planning Updated by [id number]: Karmen Downs on 03/29/19 11:[address] Patient Name: LAURA LEVY Admission Status: ER Accout number: [id number] Admission Date: 03-24-2019 : 1945 Admission Diagnosis:DISPLACED BIMALLEOLAR FRACTURE OF LEFT LOWER LEG, INIT Attending: VERONICA ABREU Current LOS: 5 Anticipated DC Date: Planned Disposition: Home with Home Health Primary Insurance: [facility] MEDICARE SOLUTIONS Discharge Planning Comments: CM met with patient and to complete initial dc planning assessment. CM educated patient on the CM role and verbal consent given by patient to complete assessment. Patient lives at home with his , but is currently moving to [place] to live with his daughter. At discharge patient plans to move to [place] and feels this is a safe discharge. CM discussed availability of home health, rehab services, and medical equipment. He does NOT want rehab or skilled he wants home health to come to his daughters home. Her address is [address] [place] [address]. He has a walker, shower chair, BSC, cane and I have ordered a wheelchair from [facility], I spoke with hernando. I will call his daughter to see if she had found any information about home [facility] in [place], she was suppose to be looking into this. IMM served and explained and MARGARETTE fro [facility] and HH signed. CM will continue to follow and will assist as needed with dc plans/needs. Nba Player: Karmen Downs DCPIA - Discharge Planning Initial Assessment Updated by [id number]: Karmen Downs on 03/29/19 12:35 pm * Is the patient Alert and Oriented? Yes * How many steps to enter\exit or inside your home? * PCP [facility] * Pharmacy [facility] * Preadmission Environment Home with Family * ADLs Independent * Equipment Bedside Commode Cane Rolling Walker Shower Chair * List name and contact numbers for known caregivers / representatives who currently or will assist patient after discharge: CARA (DAUGHTER) [phone] KATIANA LEVY () [phone] * Verbal permission to speak to the caregivers and representatives has been obtained from the patient. Yes * Community resources currently utilized None * Additional services required to return to the preadmission environment? Yes * Can the patient safely return to the preadmission environment? Yes * Has this patient been hospitalized within the prior 30 days at any hospital? No Coverage Notice Reviewer: [id number] Elton Downs Notice Issued Date-Time: 03/29/2019 12:00 Notice Type: IM Discharge Notice Notice Delivered To: Patient Relationship to Patient: Spouse Compensation And Hris Analyst Name: Delivery Method: HAND - Hand Delivered Annabelle Days: Prior Verbal Notification: Recipient Understood Notice: Yes Recipient Signature: Yes Med Rec Note Co-signed by Attending: Coverage Notice Comment: patient could not sign, did Reviewer: [id number] Downs Notice Issued Date-Time: 03/29/2019 12:00 Notice Type: Patient Choice Letter Notice Delivered To: Patient Relationship to Patient: Compensation And Hris Analyst Name: Delivery Method: - Annabelle Days: Prior Verbal Notification: Recipient Understood Notice: Recipient Signature: Med Rec Note Co-signed by Attending: Coverage Notice Comment: Last DP export: 03/29/19 1:52 p Patient Name: LAURA LEVY Page 89943 at 1130 All edits/amendments must be made on the electronic document DICTATION DATE: 03/30/19 1130 ASSORTMENT PLANNER: YULISA 03/30/19 1130 RPT#: [id number] DC DATE: STATUS: ADM IN [facility] [address] [place] [address] END OF REPORT
--- NOTE | 2019-03-30 11:38 | MORECARE ---
CASE MANAGEMENT DISCHARGE SUMMARY PATIENT: LAURA LEVY UNIT: [id number] ADM DATE: 03/24/19 AGE: 73 : 45 SEX: M ROOM/BED: D.2210 AUTHOR: MARY ELLEN,DOC PHYSICIAN: REFERRING PHYSICIAN: VERONICA ROCA MD DATE OF SERVICE: 03/30/19 Discharge Plan Patient Name: LAURA LEVY Facility: [facility]:[place] : 1945 Planned Disposition: Home with Home Health Anticipated Discharge Date: Discharge Date: Expected LOS: Initial Reviewer: [email or web address] Initial Review Date: 03/24/2019 Generated: 03/30/19 12:38 pm Comments DCP- Discharge Planning Updated by [email or web address]: Karmen Downs on 03/30/19 10:[address] I also reached out to Madyson who was the one to review his chart from [facility]. left message for her to call me back DCP- Discharge Planning Updated by [email or web address]: Karmen Downs on 03/30/19 10:[address] I have reached out to Johnny with [facility] to help facilitate getting the patient to [place]. She was going to talk to her copy manager and get back with me. The wheelchair was delivered to hospital, then taken away because the patient will be going [place] state [place] and this is a rental. CM to follow and assist DCP- Discharge Planning Updated by [id number]: Karmen Downs on 03/29/19 1:[address] CALLED [facility] ( [phone]) AND SPOKE WITH HECTOR, SHE STATED THAT IS WOULD TAKE 7-14 DAYS TO GET AUTH, SHE SAID TO CALL [facility] ([phone])THEY WERE IN NETWORK. I CALLED THERE AND SPOKE WITH HENRIK, SHE STATED THAT HE WOULD NEED TO BE ESTABLISHED WITH A PRIMARY CARE THEN A REFERRAL COULD BE SENT, THAT OUR ORTHO MD ORDER WOULD NOT WORK. I CALL [facility] CM JOHNNY AND LEFT MESSAGE TO SEE IF SHE COULD ASSIST WITH ANY DC NEEDS. CM TO FOLLOW AND ASSIST WITH DC PLANNING DCP- Discharge Planning Updated by [id number]: Karmen Downs on 03/29/19 1:[address] RECEIVED A CALL FROM PATIENT'S DAUGHTER AND THEY WANT HIM TO USE [facility], I CALLED THEM AND SPOKE WITH ISMAEL, SHE STATED THAT THEY ARE NOT IN NETWORK WITH HEALTH SYSTEM IN THIS COUNTY, I CALLED THE DAUGHTERS BACK AND THEY WERE GOING TO GET BACK WITH ME AND LET ME KNOW THEIR NEXT CHOICE. CM TO FOLLOW AND ASSIST WITH DC PLANNING DCP- Discharge Planning Updated by [email or web address]: Karmen Downs on 03/29/19 12:[address] RECEIVED A CALL FROM HERNANDO WITH [facility] THEY ARE OUT OF NETWORK FOR THIS PATIENT, [facility] IS IN NETWORK SO I SENT THE ORDER AND REFERRAL TO [facility]. CM TO FOLLOW AND ASSIST WITH DC PLANNING DCP- Discharge Planning Updated by [id number]: Karmen Downs on 03/29/19 11:[address] Patient Name: LAURA LEVY Admission Status: ER Accout number: [id number] Admission Date: 03-24-2019 : 1945 Admission Diagnosis:DISPLACED BIMALLEOLAR FRACTURE OF LEFT LOWER LEG, INIT Attending: VERONICA ABREU Current LOS: 5 Anticipated DC Date: Planned Disposition: Home with Home Health Primary Insurance: [facility] MEDICARE SOLUTIONS Discharge Planning Comments: CM met with patient and to complete initial dc planning assessment. CM educated patient on the CM role and verbal consent given by patient to complete assessment. Patient lives at home with his , but is currently moving to [place] to live with his daughter. At discharge patient plans to move to [place] and feels this is a safe discharge. CM discussed availability of home health, rehab services, and medical equipment. He does NOT want rehab or skilled he wants home health to come to his daughters home. Her address is [address] [place] [address]. He has a walker, shower chair, BSC, cane and I [facility], I spoke with hernando. I will call his daughter to see if she had found any information about home helath companies in [place], she was suppose to be looking into this. IMM served and explained and MARGARETTE fro [facility] and HH signed. CM will continue to follow and will assist as needed with dc plans/needs. Computer Systems Hardware Analyst: Karmen Downs DCPIA - Discharge Planning Initial Assessment Updated by [id number]: Karmen Downs on 03/29/19 12:35 pm * Is the patient Alert and Oriented? Yes * How many steps to enter\exit or inside your home? * PCP [facility] * [facility] * Preadmission Environment Home with Family * ADLs Independent * Equipment Bedside Commode Cane Rolling Walker Shower Chair * List name and contact numbers for known caregivers / representatives who currently or will assist patient after discharge: CARA (DAUGHTER) [phone] KATIANA LEVY () [phone] * Verbal permission to speak to the caregivers and representatives has been obtained from the patient. Yes * Community resources currently utilized None * Additional services required to return to the preadmission environment? Yes * Can the patient safely return to the preadmission environment? Yes * Has this patient been hospitalized within the prior 30 days at any hospital? No Coverage Notice Reviewer: [id number] Elton Downs Notice Issued Date-Time: 03/29/2019 12:00 Notice Type: IM Discharge Notice Notice Delivered To: Patient Relationship to Patient: Spouse Service Order Dispatcher Name: Delivery Method: HAND - Hand Delivered Annabelle Days: Prior Verbal Notification: Recipient Understood Notice: Yes Recipient Signature: Yes Med Rec Note Co-signed by Attending: Coverage Notice Comment: patient could not sign, did Reviewer: [id number] Elton Downs Notice Issued Date-Time: 03/29/2019 12:00 Notice Type: Patient Choice Letter Notice Delivered To: Patient Relationship to Patient: Service Order Dispatcher Name: Delivery Method: - Annabelle Days: Prior Verbal Notification: Recipient Understood Notice: Recipient Signature: Med Rec Note Co-signed by Attending: Coverage Notice Comment: Last DP export: 03/30/19 10:30 a Patient Name: LAURA LEVY Page 78967 at 1138 All edits/amendments must be made on the electronic document DICTATION DATE: 03/30/191137 APPLICATION PROJECT LEADER: YULISA 03/30/19 1138 RPT#: [id number] DC DATE: STATUS: ADM IN [facility] [address] [place] [address] END OF REPORT
--- NOTE | 2019-03-30 12:11 | MORECARE ---
CASE MANAGEMENT DISCHARGE SUMMARY PATIENT: LAURA LEVY UNIT: [id number] ADM DATE: 03/24/19 AGE: 73 : 45 SEX: M ROOM/BED: D.2210 AUTHOR: MARY ELLEN,DOC PHYSICIAN: REFERRING PHYSICIAN: VERONICA RCOA MD DATE OF SERVICE: 03/30/19 Discharge Plan Patient Name: LAURA LEVY Facility: [facility]:[place] : 1945 Planned Disposition: Home with Home Health Anticipated Discharge Date: Discharge Date: Expected LOS: Initial Reviewer: [id number] Initial Review Date: 03/24/2019 Generated: 03/30/19 1:11 pm Comments DCP- Discharge Planning Updated by [id number]: Karmen Downs on 03/30/19 11:[address] Spoke with Johnny from [facility], she stated that the 2 Skilled facilities with in a 10 mile radius that are in-network. 1) [facility] in [place], [place] 2) [facility] I called the daughter to let her know which ones that are in network, [facility]. I called [facility] and spoke with martin Nickerson. I faxed the clinicals to her and they will review it and get back with me. In the mean time, the daughter was going to go talk to HER doctor to see if he would see her dad so he could have home health. She is driving back to [place] today, so she will not see him till tomorrow. I have explained everything to the patient and the . They are working on getting him a wheelchair & understand what is going on. CM will continue to assist DCP- Discharge Planning Updated by [email or web address]: Karmen Downs on 03/30/19 10:[address] I also reached out to Madyson who was the one to review his chart from [facility]. left message for her to call me back DCP- Discharge Planning Updated by [id number]: Karmen Downs on 03/30/19 10:[address] I have reached out to Johnny with [facility] to help facilitate getting the patient to [place]. She was going to talk to her assistant restaurant general manager and get back with me. The wheelchair was delivered to hospital, then taken away because the patient will be going [place] state [place] and this is a rental. CM to follow and assist DCP- Discharge Planning Updated by [email or web address]: Karmen Downs on 03/29/19 1:[address] CALLED [facility] ) AND SPOKE WITH HECTOR, SHE STATED THAT IS WOULD TAKE 7-14 DAYS TO GET AUTH, SHE SAID TO CALL [facility] ([phone])THEY WERE IN NETWORK. I CALLED THERE AND SPOKE WITH HENRIK, SHE STATED THAT HE WOULD NEED TO BE ESTABLISHED WITH A PRIMARY CARE THEN A REFERRAL COULD BE SENT, THAT OUR ORTHO MD ORDER WOULD NOT WORK. I CALL [facility] CM JOHNNY AND LEFT MESSAGE TO SEE IF SHE COULD ASSIST WITH ANY DC NEEDS. CM TO FOLLOW AND ASSIST WITH DC PLANNING DCP- Discharge Planning Updated by [email or web address]: Karmen Downs on 03/29/19 1:[address] RECEIVED A CALL FROM PATIENT'S DAUGHTER AND THEY WANT HIM TO USE [facility], I CALLED THEM AND SPOKE WITH ISMAEL, SHE STATED THAT THEY ARE NOT IN NETWORK WITH [facility] IN THIS [facility], I CALLED THE DAUGHTERS BACK AND THEY WERE GOING TO GET BACK WITH ME AND LET ME KNOW THEIR NEXT CHOICE. CM TO FOLLOW AND ASSIST WITH DC PLANNING DCP- Discharge Planning Updated by [id number]: Karmen Downs on 03/29/19 12:[address] RECEIVED A CALL FROM HERNANDO WITH [facility] THEY ARE OUT OF NETWORK FOR THIS PATIENT, [facility] IS IN NETWORK SO I SENT THE ORDER AND REFERRAL TO [facility]. CM TO FOLLOW AND ASSIST WITH DC PLANNING DCP- Discharge Planning Updated by [id number]: Karmen Downs on 03/29/19 11:[address] Patient Name: LAURA LEVY Admission Status: ER Accout number: [id number] Admission Date: 03-24-2019 : 1945 Admission Diagnosis:DISPLACED BIMALLEOLAR FRACTURE OF LEFT LOWER LEG, INIT Attending: VERONICA ABREU Current LOS: 5 Anticipated DC Date: Planned Disposition: Home with Home Health Primary Insurance: [facility] [employer] Discharge Planning Comments: CM met with patient and to complete initial dc planning assessment. CM educated patient on the CM role and verbal consent given by patient to complete assessment. Patient lives at home with his , but is currently moving to [place] to live with his daughter. At discharge patient plans to move to [place] and feels this is a safe discharge. CM discussed availability of home health, rehab services, and medical equipment. He does NOT want rehab or skilled he wants home health to come to his daughters home. Her address is [address] [place] [address] [place] [address]. He has a walker, shower chair, BSC, cane and I have ordered a wheelchair from [employer], I spoke with hernando. I will call his daughter to see if she had found any information about home helath companies in [place], she was suppose to be looking into this. IMM served and explained and MARGARETTE fro [facility] and [facility] signed. CM will continue to follow and will assist as needed with dc plans/needs. Disease Management Nurse: Karmen Downs DCPIA - Discharge Planning Initial Assessment Updated by [email or web address]: Karmen Downs on 03/29/19 12:35 pm * Is the patient Alert and Oriented? Yes * How many steps to enter\exit or inside your home? * PCP [facility] * [facility]acy [facility] * Preadmission Environment Home with Family * ADLs Independent * Equipment Bedside Commode Cane Rolling Walker Shower Chair * List name and contact numbers for known caregivers / representatives who currently or will assist patient after discharge: CARA (DAUGHTER) [phone] KATIANA LEVY () [phone] * Verbal permission to speak to the caregivers and representatives has been obtained from the patient. Yes * Community resources currently utilized None * Additional services required to return to the preadmission environment? Yes * Can the patient safely return to the preadmission environment? Yes * Has this patient been hospitalized within the prior 30 days at any hospital? No Coverage Notice Reviewer: [id number] - Karmen Downs Notice Issued Date-Time: 03/29/2019 12:00 Notice Type: IM Discharge Notice Notice Delivered To: Patient Relationship to Patient: Spouse Brake Drum Lathe Operator Name: Delivery Method: HAND - Hand Delivered Annabelle Days: Prior Verbal Notification: Recipient Understood Notice: Yes Recipient Signature: Yes Med Rec Note Co-signed by Attending: Coverage Notice Comment: patient could not sign, did Reviewer: [id number] Elton Downs Notice Issued Date-Time: 03/29/2019 12:00 Notice Type: Patient Choice Letter Notice Delivered To: Patient Relationship to Patient: Brake Drum Lathe Operator Name: Delivery Method: - Annabelle Days: Prior Verbal Notification: Recipient Understood Notice: Recipient Signature: Med Rec Note Co-signed by Attending: Coverage Notice Comment: Last DP export: 03/30/19 10:38 a Patient Name: LAURA LEVY Page [phone] at 1211 All edits/amendments must be made on the electronic document DICTATION DATE: 03/30/19 121 BRASS INSTRUMENT REPAIR TECHNICIAN: YULISA 03/30/19 1211 RPT#: [id number] DC DATE: STATUS: ADM IN [facility] [address] [place] [address] END OF REPORT
[2019-03-30 13:57] VITALS: BP 156/61
--- NOTE | 2019-03-30 14:55 | NUR ---
OT NOTE: MOD ASSIST FOR BED MOB; MIN ASSIST FOR SIMPLE GROOMING; EOB SITTING WITH MIN ASSIST; TRANSFER WITH WALKER AND MAX ASSIST FROM CHAIR TO BED. PT REMAINS VERY SHAKY AND WEAK. SOB UPON RETURNING TO BED. MOD ASSIST FOR SIT TO SUPINE. MOD ASSIST TO REPOSITION IN BED. RACHELLE ALICEA, OTR/L
--- NOTE | 2019-03-30 15:51 | NUR ---
OT NOTE: PT COMPLETED REQUIRED MAX A FOR BED MOB AND SITTING AT EOB. PT COMPLETED GROOMING TASKS WITH MIN/MOD A. PT IS WEAK AND CONFUSED. THANK YOU, MELVIN BROCK
[2019-03-30 16:24] VITALS: BP 125/68
[2019-03-30 17:03] LABS: APPEARANCE CLEAR (CLEAR); BILIRUBIN NEGATIVE (NEGATIVE); COLOR YELLOW (YELLOW); GLUCOSE 50 mg/dL (NEGATIVE); KETONE NEGATIVE (NEGATIVE); NITRITE NEGATIVE (NEGATIVE); PROTEIN 1+ mg/dL (NEGATIVE); SPECIFIC GRAVITY 1.015 (1.005-1.020); UROBILINOGEN NORMAL (NORMAL)
--- NOTE | 2019-03-30 17:28 | NUR ---
CALLED DR MARIN PER PT REQUEST FOR "SOMETHING TO MAKE ME HAVE A BM" DULCOLAX 10MG X1. TO TO CHANGE TORDOL FROM IV TO PO. NO S/S OF ACUTE DISTRESS. EXPLAINED TO PT. HE WANTED TO WAIT AND TRY PRUNE JUICE. CL IN PLACE.
--- NOTE | 2019-03-30 18:30 | NUR ---
PT RESTING IN BED. IV CONT TO BEEP. FLUSHED WELL. GOOD BLOOD RETURN. NO S/S OF ACUTE DISTRESS. CL IN PLACE.
--- NOTE | 2019-03-30 19:30 | NUR ---
LYING IN BED WITH TELEVISION ON, AT BEDSIDE, ABLE TO VOICE ALL NEEDS. DENIES PAIN AT THIS TIME. MVI INFUSING TO RIGHT UPPER ARM PER ORDERS. WILL NOTE ANY CHANGE.
[2019-03-30 21:15] VITALS: BP 186/77
--- NOTE | 2019-03-31 03:03 | NUR ---
AT 0040, HE WAS NOT GETTING QUALITY HS DUE TO TELEMETRY AND CONSTANT IV ISSUES, EVEN WITH SITE BEING PATENT. REFUSED TO CONTINUE WITH TELE AT THE MOMENT, MVI WAS STOPPED SO HE COULD REST, AT THIS TIME, RESIDENT IS RESTING SOUNDLY WITH NO S/S OF ANY DISTRESS.
[2019-03-31 05:11] VITALS: BP 135/57
[2019-03-31 05:20] LABS: BASOPHILS 0.4 % (0-2); EOSINOPHILS 4.4 % (0-7); HEMATOCRIT 25.4 % (42.0-54.0); HEMOGLOBIN 8.5 g/dL (13.5-17.5); IMMATURE GRANULOCYTES 0.8 % (0-5); LYMPHOCYTES 9.5 % (15-50); MCH 30.2 pg (26.0-34.0); MCHC 33.5 g/dL (31.0-37.0); MCV 90.4 fL (80.0-100.0); MONOCYTES 10.6 % (2-11); NEUTROPHILS 74.3 % (40-80); RBC 2.81 10x6/uL (4.20-6.10); RDW 14.4 % (11.5-14.5); WBC 10.4 10x3/uL (4.8-10.8)
[2019-03-31 05:31] LABS: ANION GAP 13.9 mmol/L (8-16); CALCIUM 8.2 mg/dL (8.5-10.1); CARBON DIOXIDE 21.4 mmol/L (21.0-32.0); CREATININE - SERUM 1.4 mg/dL (0.6-1.3); POTASSIUM - SERUM 4.3 mmol/L (3.5-5.1)
[2019-03-31 05:34] LABS: PLATELET COUNT 338 10x3/uL (130-400)
--- NOTE | 2019-03-31 07:40 | NUR ---
PT RESTING IN BED. ON CPM. "READY TO GO HOME, HAD BM LAST NIGHT". NO S/S OF ACUTED DISTRESS. CL IN PLACE.
--- NOTE | 2019-03-31 07:42 | NUR ---
PT RESTING IN BED. CHEST RISING AND FALLING. AT BEDSIDE SLEEPING. . NO S/S OF ACUTE DISTRESS. CL IN PLACE
[2019-03-31 08:30] VITALS: BP 180/70
--- NOTE | 2019-03-31 10:00 | NUR ---
PT REFUSE TELE. RETURNED BOX TO [facility]. NO S/S OF ACUTE DISTRESS. CL IN PLACE.
--- NOTE | 2019-03-31 11:15 | NUR ---
OT NOTE: PT REMAINS CONFUSED. REPORTED THAT PT WAS "CRAZY" LAST NIGHT. REPORTS THAT HE WAS CONTINUALLY ATTEMPTING TO GET OUT OF BED..STATING THAT HE WAS GOING TO GET IN THE CAR AND GO HOME. UPON ENTERING ROOM, PT ASKED IF THIS THERAPIST WAS COMING TO TAKE HIM HOME. EDUCATED PT ON THERAPY AND WHAT WE WOULD BE WORKING ON TODAY. PT DOES NOT REMEMBER ME FROM YESTERDAY. PT PERFORMED MUCH BETTER WITH BED MOB TODAY. ABLE TO MOVE L LE TO EOB AND PERFORM SUPINE TO SIT WITH MIN ASSIST; ABLE TO SCOOT TO EOB WITH MIN ASSIST. SIT TO STAND WITH MOD ASSIST. TODAY PT WAS ABLE TO TAKE WT THROUGH ARMS AND HOP FROM BED TO CHAIR WITH MOD ASSIST X 2 AND USE OF WALKER AND GAIT BELT. ABLE TO PERFORM SIMPLE GROOMING AND DRESSING TASKS EVEN THOUGH HE COMANDS HIS TO DO MOST OF IT. EDUCATED AND ENCOURAGED PT TO BE INDEP POSSIBLE WITH THE THINGS THAT HE COULD DO, HIS WILL BE DOING A VERY SIGNIFICANT AMOUNT WHEN THEY GET TO [place]. RACHELLE ALICEA, OTR/L
--- NOTE | 2019-03-31 13:06 | MORECARE ---
CASE MANAGEMENT DISCHARGE SUMMARY PATIENT: LAURA LEVY UNIT: [id number] ADM DATE: 03/24/19 AGE: 73 : 45 SEX: M ROOM/BED: D.2210 AUTHOR: MARY ELLEN,DOC PHYSICIAN: REFERRING PHYSICIAN: VERONICA ROCA MD DATE OF SERVICE: 03/31/19 Discharge Plan Patient Name: LAURA LEVY Facility: [facility]:[place] : 1945 Planned Disposition: Home with Home Health Anticipated Discharge Date: Discharge Date: Expected LOS: Initial Reviewer: [id number] Initial Review Date: 03/24/2019 Generated: 03/31/19 2:06 pm Comments DCP- Discharge Planning Updated by [id number]: Karmen Downs on 03/31/19 12:[address] Called [facility] ([phone]) and spoke with Liya to get an update and she said her admissions person would call me and give me an update. DCP- Discharge Planning Updated by [id number]: Karmen Downs on 03/31/19 11:[address] Spoke with Johnny from [facility], she stated that the 2 Skilled facilities with in a 10 mile radius that are in-network. 1) [facility] in [place], [place] 2) [facility] I called the daughter to let her know which ones that are in network, She picked [facility]. I called [facility] and spoke with martin Nickerson. I faxed the clinicals to her and they will review it and get back with me. In the mean time, the daughter was going to go talk to HER doctor to see if he would see her dad so he could have home health. She is driving back to [place] today, so she will not see him till tomorrow. I have explained everything to the patient and the . They are working on getting him a wheelchair & understand what is going on. CM will continue to assist DCP- Discharge Planning Updated by [id number]: Karmen Downs on 03/30/19 10:[address] I also reached out to Madyson who was the one to review his chart from [facility]. left message for her to call me back DCP- Discharge Planning Updated by [email or web address]: Karmen Yareli on 03/30/19 10:[address] I have reached out to Johnny with [facility] to help facilitate getting the patient to [place]. She was going to talk to her internal audit senior manager and get back with me. The wheelchair was delivered to hospital, then taken away because the patient will be going [place] state [place] and this is a rental. CM to follow and assist DCP- Discharge Planning Updated by [id number]: Karmen Yareli on 03/29/19 1:[address] CALLED [facility] ( [phone]) AND SPOKE WITH HECTOR, SHE STATED THAT IS WOULD TAKE 7-14 DAYS TO GET AUTH, SHE SAID TO CALL [facility] ([phone])THEY WERE IN NETWORK. I CALLED THERE AND SPOKE WITH HENRIK, SHE STATED THAT HE WOULD NEED TO BE ESTABLISHED WITH A PRIMARY CARE THEN A REFERRAL COULD BE SENT, THAT OUR ORTHO MD ORDER WOULD NOT WORK. I CALL [facility] CM JOHNNY AND LEFT MESSAGE TO SEE IF SHE COULD ASSIST WITH ANY DC NEEDS. CM TO FOLLOW AND ASSIST WITH DC PLANNING DCP- Discharge Planning Updated by [id number]: Karmen Yareli on 03/29/19 1:[address] RECEIVED A CALL FROM PATIENT'S DAUGHTER AND THEY WANT HIM TO USE [employer] [facility], I CALLED THEM AND SPOKE WITH ISMAEL, SHE STATED THAT THEY ARE NOT IN NETWORK WITH [facility] IN THIS [facility], I CALLED THE DAUGHTERS BACK AND THEY WERE GOING TO GET BACK WITH ME AND LET ME KNOW THEIR NEXT CHOICE. CM TO FOLLOW AND ASSIST WITH DC PLANNING DCP- Discharge Planning Updated by [id number]: Karmen Downs on 03/29/19 12:[address] RECEIVED A CALL FROM HERNANDO WITH [facility] THEY ARE OUT OF NETWORK FOR THIS PATIENT, [facility] IS IN NETWORK SO I SENT THE ORDER AND REFERRAL TO [facility]. CM TO FOLLOW AND ASSIST WITH DC PLANNING DCP- Discharge Planning Updated by [id number]: Karmen Downs on 03/29/19 11:[address] Patient Name: LAURA LEVY Admission Status: ER Accout number: [id number] Admission Date: 03-24-2019 : 1945 Admission Diagnosis:DISPLACED BIMALLEOLAR FRACTURE OF LEFT LOWER LEG, INIT Attending: VERONICA ABREU Current LOS: 5 Anticipated DC Date: Planned Disposition: Home with Home Health Primary Insurance: [facility] [employer] Discharge Planning Comments: CM met with patient and to complete initial dc planning assessment. CM educated patient on the CM role and verbal consent given by patient to complete assessment. Patient lives at home with his , but is currently moving to [place] to live with his daughter. At discharge patient plans to move to [place] and feels this is a safe discharge. CM discussed availability of home health, rehab services, and medical equipment. He does NOT want rehab or skilled he wants home health to come to his daughters home. Her address is [address] [place] [address]. He has a walker, shower chair, BSC, cane and I have ordered a wheelchair from [employer], I spoke with hernando. I will call his daughter to see if she had found any information about home helath companies in [place], she was suppose to be looking into this. IMM served and explained and MARGARETTE fro [facility] and HH signed. CM will continue to follow and will assist as needed with dc plans/needs. Dry Sand Molder: Karmen Downs DCPIA - Discharge Planning Initial Assessment Updated by [id number]: Karmen Downs on 03/29/19 12:35 pm * Is the patient Alert and Oriented? Yes * How many steps to enter\exit or inside your home? * PCP [facility] * [facility] * Preadmission Environment Home with Family * ADLs Independent * Equipment Bedside Commode Cane Rolling Walker Shower Chair * List name and contact numbers for known caregivers / representatives who currently or will assist patient after discharge: CARA (DAUGHTER) [phone] KATIANA LEVY () [phone] * Verbal permission to speak to the caregivers and representatives has been obtained from the patient. Yes * Community resources currently utilized None * Additional services required to return to the preadmission environment? Yes * Can the patient safely return to the preadmission environment? Yes * Has this patient been hospitalized within the prior 30 days at any hospital? No Coverage Notice Reviewer: [id number] Elton Downs Notice Issued Date-Time: 03/29/2019 12:00 Notice Type: IM Discharge Notice Notice Delivered To: Patient Relationship to Patient: Spouse Cube Cutter Name: Delivery Method: HAND - Hand Delivered Annabelle Days: Prior Verbal Notification: Recipient Understood Notice: Yes Recipient Signature: Yes Med Rec Note Co-signed by Attending: Coverage Notice Comment: patient could not sign, did Reviewer: [id number] Elton Downs Notice Issued Date-Time: 03/29/2019 12:00 Notice Type: Patient Choice Letter Notice Delivered To: Patient Relationship to Patient: Cube Cutter Name: Delivery Method: - Annabelle Days: Prior Verbal Notification: Recipient Understood Notice: Recipient Signature: Med Rec Note Co-signed by Attending: Coverage Notice Comment: Last DP export: 03/30/19 11:11 a Patient Name: LAURA LEVY Page [id number] at 1306 All edits/amendments must be made on the electronic document DICTATION DATE: 03/31/19 1306 SPEECH THERAPY DIRECTOR: YULISA 03/31/19 1306 RPT#: [id number] DC DATE: STATUS: ADM IN [facility] [address] [place] [address] END OF REPORT
[2019-03-31 13:34] VITALS: BP 167/61
[2019-03-31 17:53] VITALS: BP 173/69
--- NOTE | 2019-03-31 18:54 | NUR ---
PT RESTING IN BED. NO S.S OF ACUTE DISTRESS. CL IN PLACE. AT BEDSIDE.
--- NOTE | 2019-03-31 19:48 | NUR ---
OT NOTE: PT COMPLETED BED MOB WITH MOD A. PT COMPLETED SUPINE TO SIT WITH MOD A. PT COMPLETED FACE WASH WITH SET UP. THANK YOU, MELVIN BROCK
[2019-03-31 20:25] VITALS: BP 162/62
[2019-04-01 06:35] VITALS: BP 160/68
[2019-04-01 06:48] LABS: ANION GAP 16.1 mmol/L (8-16); CALCIUM 8.1 mg/dL (8.5-10.1); CARBON DIOXIDE 19.5 mmol/L (21.0-32.0); CREATININE - SERUM 1.3 mg/dL (0.6-1.3); POTASSIUM - SERUM 4.6 mmol/L (3.5-5.1)
[2019-04-01 07:20] LABS: HEMATOCRIT 28.2 % (42.0-54.0); HEMOGLOBIN 9.3 g/dL (13.5-17.5); MCH 30.5 pg (26.0-34.0); MEAN PLATELET VOLUME 10.7 fL (7.4-10.4); RBC 3.05 10x6/uL (4.20-6.10); RDW 14.7 % (11.5-14.5); WBC 9.8 10x3/uL (4.8-10.8)
[2019-04-01 07:25] LABS: MCV 92.5 fL (80.0-100.0); PLATELET COUNT 255 10x3/uL (130-400)
--- NOTE | 2019-04-01 07:25 | NUR ---
PT IS WITHOUT DISTRESS. IS ASSISTING WITH URINAL.MONITOR FOR NEEDS
[2019-04-01 08:34] VITALS: BP 188/72
--- NOTE | 2019-04-01 10:00 | NUR ---
ASSESSMENT PER FLOW SHEET. PT IS WITHOUT DISTRESS. AT BEDSIDE. MONITOR.FALL PREVENTION IN PLACE
[2019-04-01 10:20] LABS: BASOPHILS 1 % (0-2); EOSINOPHILS 3 % (0-7); LYMPHOCYTES 25 % (15-50); MONOCYTES 16 % (2-11); NEUTROPHILS 55 % (40-80); PLATELET ESTIMATE NORMAL
[2019-04-01 10:21] LABS: ANISOCYTOSIS OCC; CRENATED CELLS OCC; POIKILOCYTOSIS OCC
--- NOTE | 2019-04-01 10:40 | NUR ---
OT NOTE: PT DOING BETTER TODAY. BED MOB WITHOUT ASSIST FOR SUPINE TO SIT. ABLE TO RIMMA GOWN WITH SET UP; UPPER BODY, FACE, AND HAND WASHING WITH SET UP AND VC. SIT TO STAND WITH MIN/MOD ASSIST; ATTEMPTED AMBULATION WITH PHYS THERAPY ASSIST, WALKER, GAIT BELT, AND FREQ VERBAL CUES FOR WALKER MGMT/PLACEMENT AND USE OF UPPER BODY FOR SUPPORT. PT CONTINUES TO EXHIBIT TREMORS ALL OVER. UES AND LE ARE WEAK. PT FATIGUED AFER APPROX 10 FT OF AMBULATION. EDUCATION ON REACHING BACK TO SIT IN CHAIR; EDUCATED ON UE EXS INCLUDING CHAIR PUSHUPS AND TRICEP STRENGTHENING EXS. RACHELLE ALICEA, OTR/L
--- NOTE | 2019-04-01 11:15 | MORECARE ---
CASE MANAGEMENT DISCHARGE SUMMARY PATIENT: LAURA LEVY UNIT: [id number] ADM DATE: 03/24/19 AGE: 73 : 45 SEX: M ROOM/BED: D.2210 AUTHOR: MARY ELLENDOC PHYSICIAN: REFERRING PHYSICIAN: VERONICA ROCA MD DATE OF SERVICE: 04/01/19 Discharge Plan Patient Name: LAURA LEVY Facility: [facility]:[place] : 1945 Planned Disposition: Home with Home Health Anticipated Discharge Date: Discharge Date: Expected LOS: Initial Reviewer: [email or web address] Initial Review Date: 03/24/2019 Generated: 04/01/19 12:15 pm Comments DCP- Discharge Planning Updated by [email or web address]: Taylor Major on 04/01/19 10:[address] I spoke with Liya at [facility] in [place] and she states their DON has clinically accepted the patient, but they are still waiting on insurance authorization. I called his daughter, Kenna, and she states that he will be unable to get an appointment with a primary care doctor until he is physically in [place]. She states they do have a wheelchair for him and they will transport him to [place] when insurance authorizes. She did give me a number [phone] to speak with Dayne at a inpatient rehab that said they would accept. I informed her that he would still need insurance auth and they would more than likely deny inpatient rehab based on diagnosis. I did call Dayne per her request and he agrees that he would not meet inpatient criteria and plan should be SNF. I informed Kenna of this. CM will continue to follow and assist with discharge planning/needs. DCP- Discharge Planning Updated by [id number]: Karmen Downs on 03/31/19 12:[address] Called [facility] ([phone]) and spoke with Liya to get an update and she said her admissions person would call me and give me an update. DCP- Discharge Planning Updated by [id number]: Karmen Downs on 03/31/19 11:[address] Spoke with Johnny from [facility], she stated that the 2 Skilled facilities with in a 10 mile radius that are in-network. 1) [facility] in [place], [place] 2) [facility] I called the daughter to let her know which ones that are in network, She picked [facility]. I called [facility] and spoke with martin Nickerson. I faxed the clinicals to her and they will review it and get back with me. In the mean time, the daughter was going to go talk to HER doctor to see if he would see her dad so he could have home health. She is driving back to [place] today, so she will not see him till tomorrow. I have explained everything to the patient and the . They are working on getting him a wheelchair & understand what is going on. CM will continue to assist DCP- Discharge Planning Updated by [email or web address]: Karmen Downs on 03/30/19 10:[address] I also reached out to Madyson who was the one to review his chart from [facility]. left message for her to call me back DCP- Discharge Planning Updated by [id number]: Karmen Downs on 03/30/19 10:[address] I have reached out to Johnny with [facility] to help facilitate getting the patient to [place]. She was going to talk to her manager neonatal and get back with me. The wheelchair was delivered to hospital, then taken away because the patient will be going [place] state lines and this is a rental. CM to follow and assist DCP- Discharge Planning Updated by [email or web address]: Karmen Downs on 03/29/19 1:[address] CALL[address] [facility] ) AND SPOKE WITH HECTOR, SHE STATED THAT IS WOULD TAKE 7-14 DAYS TO GET AUTH, SHE SAID TO CALL [facility] ([phone])THEY WERE IN NETWORK. I CALLED THERE AND SPOKE WITH HENRIK, SHE STATED THAT HE WOULD NEED TO BE ESTABLISHED WITH A PRIMARY CARE THEN A REFERRAL COULD BE SENT, THAT OUR ORTHO MD ORDER WOULD NOT WORK. I CALL [facility] CM JOHNNY AND LEFT MESSAGE TO SEE IF SHE COULD ASSIST WITH ANY DC NEEDS. CM TO FOLLOW AND ASSIST WITH DC PLANNING DCP- Discharge Planning Updated by [email or web address]: Karmen Downs on 03/29/19 1:[address] RECEIVED A CALL FROM PATIENT'S DAUGHTER AND THEY WANT HIM TO USE [employer], I CALLED THEM AND SPOKE WITH ISMAEL, SHE STATED THAT THEY ARE NOT IN NETWORK WITH [facility] IN THIS COUNTY, I CALLED THE DAUGHTERS BACK AND THEY WERE GOING TO GET BACK WITH ME AND LET ME KNOW THEIR NEXT CHOICE. CM TO FOLLOW AND ASSIST WITH DC PLANNING DCP- Discharge Planning Updated by [id number]: Karmen Downs on 03/29/19 12:[address] RECEIVED A CALL FROM HER[facility]NDO WITH [facility] THEY ARE OUT OF NETWORK FOR THIS PATIENT, [facility] IS IN NETWORK SO I SENT THE ORDER AND REFERRAL TO [facility]. CM TO FOLLOW AND ASSIST WITH DC PLANNING DCP- Discharge Planning Updated by [id number]: Karmen Downs on 03/29/19 11:[address] Patient Name: LAURA LEVY Admission Status: ER Accout number: [id number] Admission Date: 03-24-2019 : 1945 Admission Diagnosis:DISPLACED BIMALLEOLAR FRACTURE OF LEFT LOWER LEG, INIT Attending: VERONICA ABREU Current LOS: 5 Anticipated DC Date: Planned Disposition: Home with Home Health Primary Insurance: [facility] [employer] Discharge Planning Comments: CM met with patient and to complete initial dc planning assessment. CM educated patient on the CM role and verbal consent given by patient to complete assessment. Patient lives at home with his , but is currently moving to [place] to live with his daughter. At discharge patient plans to move to [place] and feels this is a safe discharge. CM discussed availability of home health, rehab services, and medical equipment. He does NOT want rehab or skilled he wants home health to come to his daughters home. Her address is [address] [place] [address]. He has a walker, shower chair, BSC, cane and I [facility], I spoke with hernando. I will call his daughter to see if she had found any information about home helath companies in [place], she was suppose to be looking into this. [facility] served and explained and MARGARETTE kenney [place] and HH signed. CM will continue to follow and will assist as needed with dc plans/needs. Wax Room Supervisor: Karmen Downs DCPIA - Discharge Planning Initial Assessment Updated by [email or web address]: Karmne Downs on 03/29/19 12:35 pm * Is the patient Alert and Oriented? Yes * How many steps to enter\exit or inside your home? * PCP NICO * Pharmacy [facility] * Preadmission Environment Home with Family * ADLs Independent * Equipment Bedside Commode Cane Rolling Walker Shower Chair * List name and contact numbers for known caregivers / representatives who currently or will assist patient after discharge: CARA (DAUGHTER) [phone] KATIANA LEVY () [phone] * Verbal permission to speak to the caregivers and representatives has been obtained from the patient. Yes * Community resources currently utilized None * Additional services required to return to the preadmission environment? Yes * Can the patient safely return to the preadmission environment? Yes * Has this patient been hospitalized within the prior 30 days at any hospital? No Coverage Notice Reviewer: [id number] Elton Downs Notice Issued Date-Time: 03/29/2019 12:00 Notice Type: IM Discharge Notice Notice Delivered To: Patient Relationship to Patient: Spouse Retail Sales Assistant Name: Delivery Method: HAND - Hand Delivered Annabelle Days: Prior Verbal Notification: Recipient Understood Notice: Yes Recipient Signature: Yes Med Rec Note Co-signed by Attending: Coverage Notice Comment: patient could not sign, did Reviewer: [id number] Elton Downs Notice Issued Date-Time: 03/29/2019 12:00 Notice Type: Patient Choice Letter Notice Delivered To: Patient Relationship to Patient: Retail Sales Assistant Name: Delivery Method: - Annabelle Days: Prior Verbal Notification: Recipient Understood Notice: Recipient Signature: Med Rec Note Co-signed by Attending: Coverage Notice Comment: Last DP export: 03/31/19 12:06 pm Patient Name: LAURA LEVY Page [id number] at 1115 All edits/amendments must be made on the electronic document DICTATION DATE: 04/01/19 1115 SURG PHYSICIAN ASST: YULISA 04/01/19 1115 RPT#: [id number] DC DATE: STATUS: ADM IN [facility] [address] [place] [address] END OF REPORT
--- NOTE | 2019-04-01 14:02 | NUR ---
PT RESTING. FAMILY REMAINS AT BEDSIDE
--- NOTE | 2019-04-01 15:06 | NUR ---
OT NOTE: PT COMPLETED BED MOB WITH SBA. PT COMPLETED EOB SITTING SBA. PT COMPLETED SIMPLE FACE WASH WITH SET UP. THANK YOU, MELVIN BROCK
--- NOTE | 2019-04-01 15:45 | NUR ---
SLEEPING ON RIGHT SIDE,WITHOUT DISTRESS. AT BEDSIDE.
[2019-04-01 16:45] VITALS: BP 176/72
--- NOTE | 2019-04-01 18:26 | NUR ---
PT IS WITHOUT CHANGE.CONT PLAN OF CARE
[2019-04-01 20:00] VITALS: BP 174/69
[2019-04-02 04:00] VITALS: BP 108/69
[2019-04-02 06:39] LABS: ANION GAP 12.7 mmol/L (8-16); CALCIUM 8.4 mg/dL (8.5-10.1); CREATININE - SERUM 1.5 mg/dL (0.6-1.3); POTASSIUM - SERUM 4.1 mmol/L (3.5-5.1)
[2019-04-02 06:40] LABS: CARBON DIOXIDE 24.4 mmol/L (21.0-32.0)
[2019-04-02 08:45] VITALS: BP 179/70
[2019-04-02 11:49] LABS: BASOPHILS 0.6 % (0-2); EOSINOPHILS 5.6 % (0-7); HEMATOCRIT 24.7 % (42.0-54.0); HEMOGLOBIN 8.1 g/dL (13.5-17.5); IMMATURE GRANULOCYTES 0.7 % (0-5); LYMPHOCYTES 15.4 % (15-50); MCH 29.9 pg (26.0-34.0); MCHC 32.8 g/dL (31.0-37.0); MCV 91.1 fL (80.0-100.0); MEAN PLATELET VOLUME 9.8 fL (7.4-10.4); MONOCYTES 11.3 % (2-11); NEUTROPHILS 66.4 % (40-80); PLATELET COUNT 355 10x3/uL (130-400); RBC 2.71 10x6/uL (4.20-6.10); RDW 14.5 % (11.5-14.5)
[2019-04-02 13:28] VITALS: BP 158/61
[2019-04-02 16:34] VITALS: BP 165/71
[2019-04-02 20:00] VITALS: BP 164/59
--- NOTE | 2019-04-02 20:34 | NUR ---
PT C/O PAIN 01/07. GAVE ULTRAM 50 MG PO. FSBS 130 - NO INSULIN PER SS. EYE DROPS ADMINISTERED. AT BEDSIDE. WILL CONTINUE TO MONITOR.
[2019-04-03] VITALS: BP 164/67
[2019-04-03 04:00] VITALS: BP 114/53; BP 174/70
[2019-04-03 05:40] LABS: BASOPHILS 0.6 % (0-2); EOSINOPHILS 4.8 % (0-7); HEMOGLOBIN 8.8 g/dL (13.5-17.5); IMMATURE GRANULOCYTES 0.6 % (0-5); LYMPHOCYTES 16.3 % (15-50); MCH 30.3 pg (26.0-34.0); MCHC 33.8 g/dL (31.0-37.0); MCV 89.7 fL (80.0-100.0); MEAN PLATELET VOLUME 9.4 fL (7.4-10.4); MONOCYTES 9.8 % (2-11); NEUTROPHILS 67.9 % (40-80); PLATELET COUNT 361 10x3/uL (130-400); RDW 14.3 % (11.5-14.5); WBC 8.8 10x3/uL (4.8-10.8)
[2019-04-03 05:47] LABS: CALCIUM 8.2 mg/dL (8.5-10.1); CARBON DIOXIDE 25.1 mmol/L (21.0-32.0); CREATININE - SERUM 1.6 mg/dL (0.6-1.3); POTASSIUM - SERUM 4.1 mmol/L (3.5-5.1)
--- NOTE | 2019-04-03 08:00 | NUR ---
ASSESSMENT PER FLOW SHEET. PT IS WITHOUT DISTRESS.MONITOR FOR NEEDS
[2019-04-03 09:08] VITALS: BP 170/75
[2019-04-03 11:36] VITALS: BP 153/66
[2019-04-03] MEDS ORDERED: HYDROCODON-ACE1 EA10 PO (14:03)
[2019-04-03] MEDS ORDERED: ELIQUIS2.5 MG PO (14:03)
--- NOTE | 2019-04-03 16:56 | NUR ---
DISCHARGE INSTRUCTIONS WITH PT AND FAMILY,STATES UNDERSTANDING. IV DCD WITH CATH TIP INTACT.
--- NOTE | 2019-04-03 17:09 | NUR ---
LEFT UNIT VIA WHEELCHAIR FOR TRANSPORT HOME
--- NOTE | 2019-04-04 11:35 | MORECARE ---
CASE MANAGEMENT DISCHARGE SUMMARY PATIENT: LAURA LEVY UNIT: [id number] ADM DATE: 03/24/19 AGE: 73 : 45 SEX: M ROOM/BED: D.2210 AUTHOR: MARY ELLEN,DOC PHYSICIAN: REFERRING PHYSICIAN: VERONICA ROCA MD DATE OF SERVICE: 04/04/19 Discharge Plan Patient Name: LAURA LEVY Facility: [facility]:[place] : 1945 Planned Disposition: Home with Home Health Anticipated Discharge Date: Discharge Date: 04/03/2019 Expected LOS: Initial Reviewer: [email or web address] Initial Review Date: 03/24/2019 Generated: 04/04/19 12:35 pm DCP- Discharge Planning Updated by [email or web address]: Taylor Major on 04/01/19 10:[address] I spoke with Liya at [facility] in [place] and she states their DON has clinically accepted the patient, but they are still waiting on insurance authorization. I called his daughter, Kenna, and she states that he will be unable to get an appointment with a primary care doctor until he is physically in [place]. She states they do have a wheelchair for him and they will transport him to [place] when insurance authorizes. She did give me a number [phone] to speak with Dayne at a inpatient rehab that said they would accept. I informed her that he would still need insurance auth and they would more than likely deny inpatient rehab based on diagnosis. I did call Dayne per her request and he agrees that he would not meet inpatient criteria and plan should be SNF. I informed Kenna of this. CM will continue to follow and assist with discharge planning/needs. DCP- Discharge Planning Updated by [email or web address]: Karmen Downs on 03/31/19 12:[address] Called [facility] ([phone]) and spoke with Liya to get an update and she said her admissions person would call me and give me an update. DCP- Discharge Planning Updated by [email or web address]: Karmen Downs on 03/31/19 11:[address] Spoke with Johnny from [facility], she stated that the 2 Skilled facilities with in a 10 mile radius that are in-network. 1) [facility] in [place], [place] 2) [facility] I called the daughter to let her know which ones that are in network, She picked [facility]. I called [facility] and spoke with martin Nickerson. I faxed the clinicals to her and they will review it and get back with me. In the mean time, the daughter was going to go talk to HER doctor to see if he would see her dad so he could have home health. She is driving back to [place] today, so she will not see him till tomorrow. I have explained everything to the patient and the . They are working on getting him a wheelchair & understand what is going on. CM will continue to assist DCP- Discharge Planning Updated by [id number]: Karmen Downs on 03/30/19 10:[address] I also reached out to Madyson who was the one to review his chart from [facility]. left message for her to call me back DCP- Discharge Planning Updated by [email or web address]: Karmen Downs on 03/30/19 10:[address] I have reached out to Johnny with [facility] to help facilitate getting the patient to [place]. She was going to talk to her materials and processes manager and get back with me. The wheelchair was delivered to hospital, then taken away because the patient will be going across state lines and this is a rental. CM to follow and assist DCP- Discharge Planning Updated by [id number]: Karmen Downs on 03/29/19 1:[address] CALLED [facility] ) AND SPOKE WITH HECTOR, SHE STATED THAT IS WOULD TAKE 7-14 DAYS TO GET AUTH, SHE SAID TO CALL [facility] ([phone])THEY WERE IN NETWORK. I CALLED THERE AND SPOKE WITH HENRIK, SHE STATED THAT HE WOULD NEED TO BE ESTABLISHED WITH A PRIMARY CARE THEN A REFERRAL COULD BE SENT, THAT OUR ORTHO MD ORDER WOULD NOT WORK. I CALL [facility] CM JOHNNY AND LEFT MESSAGE TO SEE IF SHE COULD ASSIST WITH ANY DC NEEDS. CM TO FOLLOW AND ASSIST WITH DC PLANNING DCP- Discharge Planning Updated by [email or web address]: Karmen Downs on 03/29/19 1:[address] RECEIVED A CALL FROM PATIENT'S DAUGHTER AND THEY WANT HIM TO USE [email or web address], I CALLED THEM AND SPOKE WITH ISMAEL, SHE STATED THAT THEY ARE NOT IN NETWORK WITH [facility] IN THIS COUNTY, I CALLED THE DAUGHTERS BACK AND THEY WERE GOING TO GET BACK WITH ME AND LET ME KNOW THEIR NEXT CHOICE. CM TO FOLLOW AND ASSIST WITH DC PLANNING DCP- Discharge Planning Updated by [id number]: Karmen Downs on 03/29/19 12:[address] RECEIVED A CALL FROM HERNANDO WITH [facility] THEY ARE OUT OF NETWORK FOR THIS PATIENT, [facility] IS IN NETWORK SO I SENT THE ORDER AND REFERRAL TO [facility]. CM TO FOLLOW AND ASSIST WITH DC PLANNING DCP- Discharge Planning Updated by [email or web address]: Karmen Downs on 03/29/19 11:[address] Patient Name: LAURA LEVY Admission Status: ER Accout number: [id number] Admission Date: 03-24-2019 : 1945 Admission Diagnosis:DISPLACED BIMALLEOLAR FRACTURE OF LEFT LOWER LEG, INIT Attending: VERONICA ABREU Current LOS: 5 Anticipated DC Date: Planned Disposition: Home with Home Health Primary Insurance: [facility] [employer] Discharge Planning Comments: CM met with patient and to complete initial dc planning assessment. CM educated patient on the CM role and verbal consent given by patient to complete assessment. Patient lives at home with his , but is currently moving to [place] to live with his daughter. At discharge patient plans to move to [place] and feels this is a safe discharge. CM discussed availability of home health, rehab services, and medical equipment. He does NOT want rehab or skilled he wants home health to come to his daughters home. Her address is [address] [place] [address]. He has a walker, shower chair, BSC, cane and I have ordered a wheelchair from [employer], I spoke with hernando. I will call his daughter to see if she had found any information about [facility] [employer] companies in [place], she was suppose to be looking into this. [facility] served and explained and MARGARETTE kenney [place] and HH signed. CM will continue to follow and will assist as needed with dc plans/needs. Plant Attendant Or Assistant Operator: Karmen Downs DCPIA - Discharge Planning Initial Assessment Updated by [id number]: Karmen Downs on 03/29/19 12:35 pm * Is the patient Alert and Oriented? Yes * How many steps to enter\exit or inside your home? * PCP NICO * [facility] * Preadmission Environment Home with Family * ADLs Independent * Equipment Bedside Commode Cane Rolling Walker Shower Chair * List name and contact numbers for known caregivers / representatives who currently or will assist patient after discharge: CARA (DAUGHTER) [phone] KATIANA LEVY () [phone] * Verbal permission to speak to the caregivers and representatives has been obtained from the patient. Yes * Community resources currently utilized None * Additional services required to return to the preadmission environment? Yes * Can the patient safely return to the preadmission environment? Yes * Has this patient been hospitalized within the prior 30 days at any hospital? No Coverage Notice Reviewer: [email or web address] Elton Downs Notice Issued Date-Time: 03/29/2019 12:00 Notice Type: IM Discharge Notice Notice Delivered To: Patient Relationship to Patient: Spouse Tube Winder Name: Delivery Method: HAND - Hand Delivered Annabelle Days: Prior Verbal Notification: Recipient Understood Notice: Yes Recipient Signature: Yes Med Rec Note Co-signed by Attending: Coverage Notice Comment: patient could not sign, did Reviewer: [id number] Elton Downs Notice Issued Date-Time: 03/29/2019 12:00 Notice Type: Patient Choice Letter Notice Delivered To: Patient Relationship to Patient: Tube Winder Name: Delivery Method: - Annabelle Days: Prior Verbal Notification: Recipient Understood Notice: Recipient Signature: Med Rec Note Co-signed by Attending: Coverage Notice Comment: Last DP export: 04/01/19 10:15 am Patient Name: LAURA LEVY Page 62825 at 1135 All edits/amendments must be made on the electronic document DICTATION DATE: 04/04/19 1134 LANGUAGE PATHOLOGIST: YULISA 04/04/19 1134 RPT#: [id number] DC DATE:04/03/19 STATUS: DIS IN [facility] [place] [id number] [place] [address] END OF REPORT
== END 2019-04-03 17:10 | DRG 492 ==
LOC: D.ER 08:25 → D.MS 11:50
PROVIDERS: Emergency Medicine; Family Medicine; Internal Medicine Nephrology; Orthopaedic Surgery; ADMIT Family Medicine; ATTEND Family Medicine
PROC: 0QSH04Z Reposition Left Tibia with Internal Fixation Device, Open Approach (ICD-10-PCS; 2019-03-28)
PROC: 0QSK04Z Reposition Left Fibula with Internal Fixation Device, Open Approach (ICD-10-PCS; principal; 2019-03-28 13:15)
DX: S82.842A Displaced bimalleolar fracture of left lower leg, initial encounter for closed fracture (principal); G93.41 Metabolic encephalopathy; S12.000A Unspecified displaced fracture of first cervical vertebra, initial encounter for closed fracture; N39.0 Urinary tract infection, site not specified; N17.9 Acute kidney failure, unspecified; W19.XXXA Unspecified fall, initial encounter; I16.0 Hypertensive urgency; E11.65 Type 2 diabetes mellitus with hyperglycemia; E87.5 Hyperkalemia; E86.0 Dehydration; D64.9 Anemia, unspecified; K21.9 Gastro-esophageal reflux disease without esophagitis; E66.9 Obesity, unspecified